=== PATIENT | female | born 1970 | race African-American/Black ===

== ENCOUNTER 2016-08-29 14:44 | Inpatient (IN) | payer OTHER ==
[2016-08-29] MEDS ORDERED: LISINOPRIL 10 MG TABLET PO ONE (15:44)
[2016-08-29] MEDS ORDERED: ACETAMINOPHEN 325 MG TABLET PO ONE (15:44)
--- NOTE | 2016-08-29 15:46 | ER Document Report ---
ED Medical Screen (RME) - General Chief Complaint: Numbness of Arm Stated Complaint: RIGHT EYE PROBLEM Notes: The patient is a 45-year-old female, past medical history diabetes, hypertension , prior episodes of right eye blindness, presents with 4 days of right eye blindness and 2 days of dull right-sided headache with tingling down the right side of her body. She has not taken her 80 mg lisinopril for the past several months. She said that when she has difficulty seeing out of her right eye, and last about a week and then will resolve. She denies head injury, neck pain, chest pain, shortness of breath, fevers, weakness, abdominal pain, nausea, vomiting or ataxia. I have greeted and performed a rapid initial assessment of this patient. A comprehensive ED assessment and evaluation of the patient, analysis of test results and completion of the medical decision making process will be conducted by additional ED providers. TRAVEL OUTSIDE OF THE [place] IN LAST 30 DAYS: No - Related Data Allergies/Adverse Reactions: No Known Allergies Allergy (Verified 08/29/16 14:48) Past Medical History Renal/ Medical History: Denies: Hx Peritoneal Dialysis Physical Exam - Vital signs Vitals: Temp Pulse Resp BP Pulse Ox 98.6 F 91 14 200/104 H 98 08/29/16 14:49 08/29/16 14:49 08/29/16 14:49 08/29/16 14:49 08/29/16 14:49 Course - Vital Signs Vital signs: Temp Pulse Resp BP Pulse Ox 98.6 F 91 14 200/104 H 98 08/29/16 14:49 08/29/16 14:49 08/29/16 14:49 08/29/16 14:49 08/29/16 14:49
[2016-08-29 17:13] LABS: ABSOLUTE LYMPHOCYTES (AUTO) 1.2 10^3/uL (0.5-4.7); ABSOLUTE MONOCYTES (AUTO) 0.2 10^3/uL (0.1-1.4); ABSOLUTE NEUT (AUTO) 2.7 10^3/uL (1.7-8.2); BASOPHILS % (AUTO) 0.6 % (0-2); EOSINOPHILS % (AUTO) 1.1 % (0-6); HEMATOCRIT 37.7 % (36.0-47.0); HGB HCT DIFFERENCE 1.3; MEAN CORPUSCULAR HEMOGLOBIN 29.3 pg (27.0-33.4); MEAN CORPUSCULAR HGB CONC 34.6 g/dL (32.0-36.0); MEAN CORPUSCULAR VOLUME 85 fl (80-97); MONOCYTES % (AUTO) 5.9 % (3-13); RED BLOOD COUNT 4.45 10^6/uL (3.72-5.28); SEGMENTED NEUTROPHILS % (AUTO) 64.4 % (42-78); WHITE BLOOD COUNT 4.2 10^3/uL (4.0-10.5)
[2016-08-29 17:24] LABS: ANION GAP 16 (5-19); BLOOD UREA NITROGEN 11 mg/dL (7-20); CALCIUM 9.1 mg/dL (8.4-10.2); CARBON DIOXIDE 23 mmol/L (22-30); CHLORIDE 108 mmol/L (98-107); CREATINE KINASE 488 U/L (30-135); CREATININE RESULT 0.94 mg/dL (0.52-1.25); GLUCOSE 85 mg/dL (75-110); POTASSIUM 4.3 mmol/L (3.6-5.0); SODIUM 147.1 mmol/L (137-145)
[2016-08-29] MEDS ORDERED: DOCUSATE SODIUM 100 MG CAPSULE PO PRN (17:57)
[2016-08-29] MEDS ORDERED: HYDROCODONE/ACETAMINOPHEN 5-325 MG TABLET PO PRN (17:57)
[2016-08-29] MEDS ORDERED: ACETAMINOPHEN 325 MG TABLET PO PRN (17:57)
[2016-08-29] MEDS ORDERED: TEMAZEPAM 15 MG CAPSULE PO PRN (17:57)
[2016-08-29] MEDS ORDERED: MAGNESIUM HYDROXIDE SUSP 30 ML UDCUP PO PRN (17:57)
[2016-08-29] MEDS ORDERED: NORMAL SALINE 1000 ML 1,000 ML IV ONE (17:58)
--- NOTE | 2016-08-29 17:58 | ER Document Report ---
ED General - General Chief Complaint: Numbness of Arm Stated Complaint: RIGHT EYE PROBLEM TRAVEL OUTSIDE OF THE [place] IN LAST 30 DAYS: No - HPI Patient complains to provider of: loss of vision right eye numbness right-sided body Notes: Patient has a history diabetes hypertension states she's been out of her medication for "quite some time. Patient also states history gastric bypass. Patient states whenever blood pressure gets high patient was does have some loss vision in the right eye. Patient at this time also complains of some numbness and tingling ongoing on the right side of her body. Patient states symptoms started approximately Friday prior to arrival. Patient denies any head trauma denies any fevers chills nausea vomiting diarrhea. Patient states she has had a stroke in the past. Patient does smoke denies drugs denies any alcohol - Related Data Allergies/Adverse Reactions: No Known Allergies Allergy (Verified 08/29/16 14:48) Home Medications: Current Home Medications Ferrous Sulfate [Slow Release Iron] 250 mg PO DAILY 08/29/16 [History] Lisinopril [Prinivil 40 mg Tablet] 80 mg PO DAILY 08/29/16 [History] Mv-Mn/Iron/FA/Ca Carb/Vit K [One-A-Day Women's Tablet] 1 tab PO DAILY 08/29/16 [ History] Past Medical History - Social History Smoking Status: Current Some Day Smoker Family History: Reviewed & Not Pertinent Patient has suicidal ideation: No Patient has homicidal ideation: No - Past Medical History Cardiac Medical History: Reports: Hx Hypertension Endocrine Medical History: Reports: Hx Diabetes Mellitus Type 2 Renal/ Medical History: Denies: Hx Peritoneal Dialysis Past Surgical History: Reports: Hx Abdominal Surgery, Hx Section, Hx Cholecystectomy, Hx Hysterectomy Review of Systems - Review of Systems Constitutional: No symptoms reported EENT: Other - Vision loss Cardiovascular: No symptoms reported Respiratory: No symptoms reported Gastrointestinal: No symptoms reported Genitourinary: No symptoms reported Female Genitourinary: No symptoms reported Musculoskeletal: Other - Right sided numbness Skin: No symptoms reported Hematologic/Lymphatic: No symptoms reported Neurological/Psychological: No symptoms reported Physical Exam - Vital signs Vitals: Temp Pulse Resp BP Pulse Ox 98.6 F 91 14 200/104 H 98 08/29/16 14:49 08/29/16 14:49 08/29/16 14:49 08/29/16 14:49 08/29/16 14:49 Interpretation: Normal - General General appearance: Appears well, Alert - HEENT Head: Normocephalic, Atraumatic Eyes: Normal Conjunctiva: Normal Cornea: Normal Extraocular movements intact: Yes Eyelashes: Normal Pupils: PERRL Notes: Visit acute he was ordered. Never performed. Upon visual testing visual kim patient had no difficulty and the 5 fingers. Patient also did have involuntary response to direct visual threats to the right eye. - Respiratory Respiratory status: No respiratory distress Chest status: Nontender Breath sounds: Normal Chest palpation: Normal - Cardiovascular Rhythm: Regular Heart sounds: Normal auscultation Murmur: No - Abdominal Inspection: Normal Distension: No distension Bowel sounds: Normal Tenderness: Nontender Organomegaly: No organomegaly - Back Back: Normal, Nontender - Extremities General upper extremity: Normal inspection, Nontender, Normal color, Normal ROM , Normal temperature General lower extremity: Normal inspection, Nontender, Normal color, Normal ROM , Normal temperature, Normal weight bearing. No: Cristian's sign - Neurological Neuro grossly intact: Yes Cognition: Normal Orientation: AAOx4 Lana Coma Scale Eye Opening: Spontaneous [place] Coma Scale Verbal: Oriented [place] Coma Scale Motor: Obeys Commands [place] Coma Scale Total: 15 Speech: Normal Motor strength normal: LUE, RUE, LLE, RLE Sensory: Normal - Psychological Associated symptoms: Normal affect, Normal mood - Skin Skin Temperature: Warm Skin Moisture: Dry Skin Color: Normal Course - Re-evaluation Re-evalutation: 08/29/16 22:[address] scan is concerning for left-sided stroke. Patient's blood pressure has improved with oral medication given here in ER in triage. Patient's NIH score 0 did discuss with patient she would not be a candidate for thrombolytic therapy at that she is past the time limit. Patient's case was discussed with the hospitalist. Patient will be admitted for further evaluation - Vital Signs Vital signs: Temp Pulse Resp BP Pulse Ox 98.1 F 88 14 180/108 H 100 08/29/16 20:27 08/29/16 20:00 08/29/16 21:16 08/29/16 21:16 08/29/16 21:16 - Laboratory Result Diagrams: 08/29/16 16:45 08/29/16 16:45 Laboratory results interpreted by me: 0408/29/16 08/29/16 16:45 16:45 17:50 RDW 16.0 H Sodium 147.1 H Chloride 108 H Creatine Kinase 488 H Urine Ketones TRACE H Urine Urobilinogen 2.0 H Critical Care Note - Critical Care Note Total time excluding time spent on procedures (mins): 35 Comments: Multiple evaluations for stroke Discharge - Discharge Clinical Impression: Visual disturbance of one eye HTN (hypertension) Qualifiers: Hypertension type: unspecified secondary hypertension Qualified Code(s): I15.9 - Secondary hypertension, unspecified CVA (cerebral vascular accident) Qualifiers: CVA mechanism: unspecified Qualified Code(s): I63.9 - Cerebral infarction, unspecified Disposition: ADMITTED INPATIENT Admitting Provider: Hospitalist Unit Admitted: [facility] NIH Stroke Scale - NIH Stroke Scale *: 1. NIH scale should be completed with appropriate accompanying assessment tools. *: 2. The NIH should reflect what the patient is capable of doing and should not be coached by the clinician. 1a. Level of Consciousness: 0=Alert;keenly responsive -: 1=Drowsy -: 2=Obtunded -: 3=Coma/unresponsive or reflex to noxious stimuli. 1a. Responses: 0 1b. Orientation Questions: a. What month is it? -: b. How old are you? -: 0=Answers both questions correctly. -: 1=Answers one question correctly or patient is intubated or has orotracheal trauma. -: 2=Answers neither question correctly. 1b. Responses: 0 1c. Response to commands: a. Open and close eyes? -: b. Physical Geographer and release hand? -: Credit is given despite weakness. Demonstration of task is permitted. Substitute command if hands cannot be used. -: 0=Performs both tasks correctly -: 1=Performs one task correctly -: 2=Performs neither task correctly 1c. Responses: 0 2. Gaze: Establish eye contact and instruct patient to "Follow my finger" -: 0=Normal -: 1=Partial gaze palsy. Gaze is abnormal in one or both eyes, but where forced deviation or total gaze paresis is not present. -: 2=Forced deviation or total gaze paresis. 2. Responses: 0 3. Visual Kim: Sees fingers in all four quadrants. -: 0=No visual loss. -: 1=Partial hemianopsia. -: 2=Complete hemianopsia. -: 3=Bilateral hemianopsia (including Cortical blindness) 3. Responses: 0 4. Facial Movement: Instruct patient to: -: a. Show me your teeth -: b. Raise your eyebrows -: c. Close your eyes -: d. Smile -: 0=Normal symmetrical movement -: 1=Minor paralysis (flattened nasolabial fold, asymmetry on smiling). -: 2=Partial paralysis (total or near total paralysis of lower face). -: 3=Complete paralysis of upper and lower face 4. Responses: 0 5. Motor functions (left arm): Alternate sides and extend each arm with palms down (90 degrees if sitting or 45 degrees for supine). -: 0=No drift;limb holds for full 10 seconds. -: 1=Drift; limb holds but drifts down before full 10 seconds, but does not hit bed. -: 2=Some effort against gravity; limb cannot get to or maintain position. -: 3=No effort against gravity; limb falls. -: 4=No movement. -: UN=Amputation, joint fusion, explain in comments. 5. Responses (left arm): 0 5. Motor Functions (right arm): Alternate sides and extend each arm with palms down (90 degrees if sitting or 45 degrees for supine). -: 0=No drift;limb holds for full 10 seconds. -: 1=Drift; limb holds but drifts down before full 10 seconds, but does not hit bed. -: 2=Some effort against gravity; limb cannot get to or maintain position. -: 3=No effort against gravity; limb falls. -: 4=No movement. -: UN=Amputation, joint fusion, explain in comments. 5. Responses (right arm): 0 6. Motor Functions (left leg): With patient lying supine, alternate sides and extend each leg (30 degrees always while supine). -: 0=No drift, leg holds position for full 5 seconds -: 1=Drift; leg falls before full 5 seconds but does not hit bed. -: 2=Some effort against gravity, leg falls to bed but some effort against gravity. -: 3=No effort against gravity, leg falls to bed immediately. -: 4=No movement. -: UN=Amputation, joint fusion; explain in comments. 6. Responses (left leg): 0 6. Motor Functions (right leg): With patient lying supine, alternate sides and extend each leg (30 degrees always while supine). -: 0=No drift, leg holds position for full 5 seconds -: 1=Drift; leg falls before full 5 seconds but does not hit bed. -: 2=Some effort against gravity, leg falls to bed but some effort against gravity. -: 3=No effort against gravity, leg falls to bed immediately. -: 4=No movement. -: UN=Amputation, joint fusion; explain in comments. 6. Responses (right leg): 0 7. Limb Ataxia: With eyes open instruct patient to: -: a. "Touch your finger to your nose". -: b. "Touch your heel to your españa" -: 0=Absent -: 1=Present in one limb. -: 2=Present in two limbs. -: UN=Amputation or joint fusion; explain in comments. 7. Responses: 0 8. Sensory: Test sensation using pinprick or noxious stimuli. Test as many body parts as possible. -: 0=Normal;no sensory loss -: 1=Mile to moderate sensory loss (patient feels pin prick but is less sharp on affected side). -: 2=Severe or total sensory loss. 8. Responses: 0 9. Best Language: Instruct patient to: -: a. "Describe what you see in this picture." -: b. "Name the items in this picture." -: c. "Read these sentences." -: 0=No aphasia, normal -: 1=Mild to moderate aphasia. -: 2=Severe aphasia -: 3=Mute, global aphasia, no usable speech or auditory comprehension. 9. Responses: 0 10. Articulation, Dysarthia: Instruct patient to: -: "Read these words" or "Repeat these words" -: 0=Normal -: 1=Mild to moderate; patient may slur some words but can be understood without difficulty. -: 2=Severe; patients speech so slurred as to be unintelligible in the absence of dysphasia. -: UN=Intubated or other physical barrier, explain in comments. 10. Responses: 0 11. Extinction or inattention: 0=No abnormality -: 1= Visual, tactile, auditory, spatial, or personal inattention or extinction to bilateral simulation in one or the sensory modalities. -: 2=Profound pushpa-inattention or pushpa-inattention to more than one modality; does not recognize own hand. 11. Responses: 0 Total Score: 0
[2016-08-29 18:30] LABS: AMORPHOUS SEDIMENT,URINE TRACE /HPF; APPEARANCE,URINE TURBID; BILIRUBIN,URINE NEGATIVE (NEGATIVE); GLUCOSE, URINE NEGATIVE (NEGATIVE); KETONES,URINE TRACE mg/dL (NEGATIVE); LEUKOCYTE ESTERASE,URINE NEGATIVE (NEGATIVE); NITRITE,URINE NEGATIVE (NEGATIVE); PROTEIN,URINE NEGATIVE (NEGATIVE); URINE SPECIFIC GRAVITY 1.029
[2016-08-29] MEDS ORDERED: LORAZEPAM INJ 2 MG/1 ML VIAL IV PRN (18:34)
[2016-08-29] MEDS ORDERED: NICOTINE 7 MG/24 HR PATCH.TD24 TD PRN (18:36)
[2016-08-29 18:39] LABS: URINE BARBITURATES SCREEN NEGATIVE; URINE METHADONE SCREEN NEGATIVE; URINE OPIATES LOW NEGATIVE; URINE PHENCYCLIDINE SCREEN NEGATIVE
[2016-08-29] MEDS ORDERED: ASPIRIN 325 MG TABLET, ENT COATED PO ONE (19:00)
--- NOTE | 2016-08-29 19:00 | PDOC H&P ---
History of Present Illness Admission Date/PCP: 08/29/16 No PCP History of Present Illness: FREDDIE OCHOA is a 45 year old female with past medical history of previous CVA, diabetes mellitus, hypertension, hyperlipidemia, neuropathy, and anemia status post gastric bypass who presents to the emergency department with right eye problems. Patient reports starting Friday she began having some problems with numbness of the right arm and leg and eye problems. Patient reports she's been out of her blood pressure medicines for the last 6 days. Patient's daughter also reports that she is having some balance issues. CT of the head reveals an acute cerebral CVA. Patient also complains of headache. She is referred to hospital service for evaluation of this. Past Medical History Past Medical History: Hypertension, hyperlipidemia, prior CVA, diabetes mellitus, anemia, neuropathy, alcohol abuse, tobacco abuse Cardiac Medical History: Reports: Hypertension Endocrine Medical History: Reports: Diabetes Mellitus Type 2 Past Surgical History Past Surgical History: Extensive facial plastic surgery as a child, gastric bypass, cholecystectomy, abdominoplasty, , partial hysterectomy Past Surgical History: Reports: Section, Cholecystectomy, Hysterectomy Social History Smoking Status: Current Every Day Smoker Cigarettes Packs Per Day: 0.3 Frequency of Alcohol Use: Heavy - 6-12 beers per day Hx Recreational Drug Use: Yes Drugs: Marijuana Hx Prescription Drug Abuse: No - Advance Directive Resuscitation Status: Full Code Surrogate healthcare decision maker:: Daughter Family History Family History: CAD, DM, Malignancy Parental Family History Reviewed: Yes Children Family History Reviewed: Yes Sibling(s) Family History Reviewed.: Yes Medication/Allergy Allergies/Adverse Reactions: No Known Allergies Allergy (Verified 08/29/16 14:48) Review of Systems Constitutional: PRESENT: headache(s). ABSENT: chills, fever(s), weight gain, weight loss Eyes: PRESENT: visual disturbances Ears: ABSENT: hearing changes Cardiovascular: ABSENT: chest pain, dyspnea on exertion, edema, orthropnea, palpitations Respiratory: ABSENT: cough, hemoptysis Gastrointestinal: ABSENT: abdominal pain, constipation, diarrhea, hematemesis, hematochezia, nausea, vomiting Genitourinary: ABSENT: dysuria, hematuria Musculoskeletal: ABSENT: joint swelling Integumentary: ABSENT: rash, wounds Neurological: PRESENT: abnormal gait, dizziness, focal weakness, paresthesias. ABSENT: abnormal speech, confusion, syncope Psychiatric: ABSENT: anxiety, depression, homidical ideation, suicidal ideation Endocrine: ABSENT: cold intolerance, heat intolerance, polydipsia, polyuria Hematologic/Lymphatic: ABSENT: easy bleeding, easy bruising Physical Exam Vital Signs: Temp Pulse Resp BP Pulse Ox 98.6 F 95 20 154/93 H 98 08/29/16 14:49 08/29/16 16:57 08/29/16 16:57 08/29/16 16:57 08/29/16 16:57 Intake & Output 08/28/16 08/29/16 08/30/16 06:59 06:59 06:59 Weight 76.8 kg General appearance: PRESENT: no acute distress, disheveled, well-developed, well -nourished Head exam: PRESENT: atraumatic, normocephalic Eye exam: PRESENT: conjunctiva pink, EOMI, nystagmus. ABSENT: PERRLA - Right eye unreactive, scleral icterus Ear exam: PRESENT: normal external ear exam Mouth exam: PRESENT: moist, tongue midline Neck exam: ABSENT: JVD, lymphadenopathy, thyromegaly, tracheal deviation Respiratory exam: PRESENT: clear to auscultation kelin, unlabored. ABSENT: crackles, rales, rhonchi, tachypnea, wheezes Cardiovascular exam: PRESENT: RRR, +S1, +S2, systolic murmur. ABSENT: diastolic murmur, gallop, rubs Pulses: PRESENT: normal dorsalis pedis pul Vascular exam: PRESENT: normal capillary refill GI/Abdominal exam: PRESENT: normal bowel sounds, soft. ABSENT: distended, guarding, mass, organolmegaly, rebound, tenderness Rectal exam: PRESENT: deferred Extremities exam: PRESENT: full ROM. ABSENT: calf tenderness, clubbing, pedal edema Neurological exam: PRESENT: alert, awake, oriented to person, oriented to place , oriented to time, oriented to situation, abnormal gait, motor sensory deficit - Numbness right side. ABSENT: CN II-XII grossly intact - Right cranial nerves III deficit Psychiatric exam: PRESENT: appropriate affect, normal mood. ABSENT: homicidal ideation, suicidal ideation Skin exam: PRESENT: dry, intact, warm. ABSENT: cyanosis, rash Results Laboratory Results: 08/29/16 16:45 08/29/16 16:45 08/29/16 08/29/16 08/29/16 16:45 16:45 17:50 WBC 4.2 RBC 4.45 Hgb 13.0 Hct 37.7 MCV 85 MCH 29.3 MCHC 34.6 RDW 16.0 H Plt Count 209 Seg Neutrophils % 64.4 Lymphocytes % 28.0 Monocytes % 5.9 Eosinophils % 1.1 Basophils % 0.6 Absolute Neutrophils 2.7 Absolute Lymphocytes 1.2 Absolute Monocytes 0.2 Absolute Eosinophils 0.0 Absolute Basophils 0.0 Sodium 147.1 H Potassium 4.3 Chloride 108 H Carbon Dioxide 23 Anion Gap 16 BUN 11 Creatinine 0.94 Est GFR ( Amer) > 60 Est GFR (Non-Af Amer) > 60 Glucose 85 Calcium 9.1 Urine Color YELLOW Urine Appearance TURBID Urine pH 5.0 Ur Specific [place] 1.029 Urine Protein NEGATIVE Urine Glucose (UA) NEGATIVE Urine Ketones TRACE H Urine Blood NEGATIVE Urine Nitrite NEGATIVE Ur Leukocyte Esterase NEGATIVE Urine WBC (Auto) 1 Urine RBC (Auto) 3 08/29/16 08/29/16 16:45 16:45 Creatine Kinase 488 H Troponin I < 0.012 Impressions: Chest X-Ray 08/29/16 15:43 IMPRESSION: NO SIGNIFICANT RADIOGRAPHIC FINDING IN THE CHEST. Head CT 08/29/16 15:43 IMPRESSION: FOCAL AREA OF DECREASED ATTENUATION IN THE LEFT CEREBRAL HEMISPHERE. THIS MAY BE VOLUME AVERAGING ARTIFACT SECONDARY TO THE ADJACENT SYLVIAN FISSURE. HOWEVER, GIVEN THE PATIENT'S CLINICAL SYMPTOMS, CANNOT EXCLUDE POSSIBILITY OF A DEVELOPING INFARCT. IF THERE IS CLINICAL SUSPICION, FOLLOW-UP MRI MAY BE INDICATED. Assessment & Plan - Diagnosis (1) CVA (cerebral vascular accident) Qualifiers: CVA mechanism: unspecified Qualified Code(s): I63.9 - Cerebral infarction, unspecified Is this a current diagnosis for this admission?: YesPlan: Patient with apparent left cerebral CVA. Admitted per stroke protocol. Consult PT/OT. Obtain MRI, carotid Doppler, echocardiogram. Discussed at length risk factor modification with patient. Labetalol for systolic blood pressure greater than 180. Aspirin daily. Statin. (2) Hypertensive emergency Is this a current diagnosis for this admission?: YesPlan: Patient was given 80 mg of lisinopril in the emergency department. We will continue to monitor patient and hold on initiating any antihypertensive therapy at this time. Concerned that patient's hypertensive emergency may be the result of alcohol withdrawal. (3) Alcohol abuse Is this a current diagnosis for this admission?: YesPlan: We'll place on thiamine and folic acid. Will place a multivitamin. Monitor for arrhythmia. And check magnesium. (4) Tobacco abuse Is this a current diagnosis for this admission?: YesPlan: Encourage cessation. Offered nicotine patch. (5) Diabetes mellitus Qualifiers: Diabetes mellitus type: type 2 Diabetes mellitus complication status: with unspecified complications Diabetes mellitus local intermodal truck driver insulin use: unspecified local intermodal truck driver insulin use status Qualified Code(s): E11.8 - Type 2 diabetes mellitus with unspecified complications Is this a current diagnosis for this admission?: YesPlan: Patient reports that she just watches what she eats. Check hemoglobin A1c. Place on diabetic diet. (6) Status post gastric bypass for obesity Is this a current diagnosis for this admission?: YesPlan: Will initiate patient on calcium, multivitamin, B-12. - Time Time Spent: 50 to 70 Minutes Medications reviewed and adjusted accordingly: Yes - Inpatient Certification Based on my medical assessment, after consideration of the patient's comorbidities, presenting symptoms, or acuity I expect that the services needed warrant INPATIENT care.: Yes I certify that my determination is in accordance with my understanding of Medicare's requirements for reasonable and necessary INPATIENT services [42 CFR 412.3e].: Yes Medical Necessity: Need For Continuous Telemetry Monitoring, Need for Neurological Checks Post Hospital Care: D/C Field Service Engineer Documentation
--- NOTE | 2016-08-29 19:52 | EKG REPORT ---
SEVERITY:- BORDERLINE ECG - SINUS TACHYCARDIA PROBABLE LEFT ATRIAL ABNORMALITY BORDERLINE PROLONGED QT INTERVAL : Confirmed by: Edgardo Pearson MD 29-Aug-2016 19:51:29
[2016-08-29 20:00] LABS: MAGNESIUM 2.2 mg/dL (1.6-2.3)
[2016-08-29] MEDS ORDERED: THIAMINE HCL 100 MG, FOLIC ACID 1 MG in NORMAL SALINE 50 ML IV SCH (20:00)
[2016-08-29] MEDS: LABETALOL HCL INJ 20 MG/4 ML DISP.SYRIN IV PRN ×2 (20:38→21:36)
[2016-08-29] MEDS ORDERED: ATORVASTATIN CALCIUM 80 MG TABLET PO SCH (22:00)
[2016-08-30 00:14] LABS: CREATINE KINASE MB 0.84 ng/mL (<4.55)
[2016-08-30 00:20] LABS: TROPONIN I < 0.012 ng/mL
[2016-08-30 06:29] LABS: CHOLESTEROL 260.97 mg/dL (0-200); CREATINE KINASE 296 U/L (30-135); TRIGLYCERIDES 39 mg/dL (<150)
[2016-08-30 06:39] LABS: DIRECT LDL 68 mg/dL (<100)
[2016-08-30 06:40] LABS: CREATINE KINASE MB 0.64 ng/mL (<4.55)
[2016-08-30 06:45] LABS: Direct HDL 181 mg/dL (>40); TROPONIN I < 0.012 ng/mL
[2016-08-30] MEDS ORDERED: ENOXAPARIN SODIUM INJ 40 MG/0.4 ML DISP.SYRIN SUBCUT SCH (08:00)
[2016-08-30] MEDS ORDERED: FERROUS SULFATE 325 MG TABLET PO SCH (09:00)
[2016-08-30] MEDS ORDERED: ASCORBIC ACID 500 MG TABLET PO SCH (10:00)
[2016-08-30] MEDS ORDERED: ASPIRIN 325 MG TABLET, ENT COATED PO SCH (10:00)
[2016-08-30] MEDS ORDERED: CYANOCOBALAMIN (VITAMIN B-12) 1,000 MCG TABLET PO SCH (10:00)
[2016-08-30] MEDS ORDERED: MULTIVITAMINS W-IRON TABLET, CHEWABLE PO SCH (10:00)
[2016-08-30] MEDS ORDERED: LOSARTAN POTASSIUM 50 MG TABLET PO SCH (10:00)
[2016-08-30] MEDS: CALCIUM CARBONATE 250 MG/VITAMIN D3 125 UNIT TABLET PO SCH ×2 (10:13→15:23)
[2016-08-30 13:00] LABS: CREATINE KINASE MB 0.66 ng/mL (<4.55)
[2016-08-30 13:01] LABS: TROPONIN I < 0.012 ng/mL
--- NOTE | 2016-08-30 14:46 | PDOC DISCHARGE SUMMARY ---
General - Admit/Disc Date/PCP Admission Date/Primary Care Provider: 08/29/16 17:57 Discharge Date: 08/30/16 - Discharge Diagnosis (1) CVA (cerebral vascular accident) Is this a current diagnosis for this admission?: Yes (2) Hypertensive emergency Is this a current diagnosis for this admission?: Yes (3) Alcohol abuse Is this a current diagnosis for this admission?: Yes (4) Tobacco abuse Is this a current diagnosis for this admission?: Yes (5) Diabetes mellitus Is this a current diagnosis for this admission?: Yes (6) Status post gastric bypass for obesity Is this a current diagnosis for this admission?: Yes - Additional Information Resuscitation Status: Full Code Discharge Diet: Cardiac Discharge Activity: Activity As Tolerated Home Medications: Ferrous Sulfate [Slow Release Iron] 250 mg PO DAILY 08/29/16 Mv-Mn/Iron/FA/Ca Carb/Vit K [One-A-Day Women's Tablet] 1 tab PO DAILY 08/29/16 Amlodipine Besylate [Norvasc 10 mg Tablet] 10 mg PO DAILY #30 tablet 08/30/16 Ascorbic Acid [Vitamin C 500 mg Tablet] 1,000 mg PO BID #120 tablet 08/30/16 Aspirin [Ecotrin 325 mg EC Tablet] 325 mg PO DAILY #90 tabec 08/30/16 Atorvastatin Calcium [Lipitor 20 mg Tablet] 20 mg PO QHS #30 tablet 08/30/16 Calcium Carbonate/Vitamin D3 [Os-Alexei 250 mg with Vitamin D 125 Units] 1 tab PO TID #90 tablet 08/30/16 Cyanocobalamin (Vitamin B-12) [Vitamin B-12 1000 mcg Tablet] 1,000 mcg PO DAILY #90 tablet 08/30/16 Folic Acid [Folvite 1 mg Tablet] 1 mg PO DAILY #30 tablet 08/30/16 Losartan Potassium [Cozaar 50 mg Tablet] 100 mg PO DAILY #60 tablet 08/30/16 Multivitamins W-Iron [Flintstones Chewable Multivit W/Fe Tab] 2 tab PO BID #120 tab.chew 08/30/16 Thiamine HCl [Thiamine 100 mg Tablet] 100 mg PO DAILY #30 tablet 08/30/16 History of Present Illness History of Present Illness: FREDDIE OCHOA is a 45 year old female with past medical history of previous CVA, diabetes mellitus, hypertension, hyperlipidemia, neuropathy, and anemia status post gastric bypass who presents to the emergency department with right eye problems. Patient reports starting Friday she began having some problems with numbness of the right arm and leg and eye problems. Patient reports she's been out of her blood pressure medicines for the last 6 days. Patient's daughter also reports that she is having some balance issues. CT of the head reveals an acute cerebral CVA. Patient also complains of headache. She is referred to hospital service for evaluation of this. Hospital Course Hospital Course: Patient was admitted per stroke protocol. Carotid Doppler was obtained which was negative. MRI was obtained which was remarkably negative. Patient has had a prior CVA and this does make complete identification of her symptoms difficult. Patient does report that her vision is much better today. Patient was also found to be intoxicated in the emergency department with a blood alcohol of 178. Today patient reports she's feeling well from that her vision although slightly blurry is not as bad as yesterday. She has been seen by physical and occupational therapy who have recommended no therapy for her. Patient is having no difficult swallowing. She is having no speech difficulties or issues with weakness. I have advised her to stop smoking and to stop using alcohol under the guidance of her physician. She is stable for discharge home. Patient was found to have a hemoglobin A1c of 4.3. She was also found to have an HDL of 181 and an LDL of 68. I did instruct patient to take statin despite excellent cholesterol. Physical Exam Vital Signs: Temp Pulse Resp BP Pulse Ox 98.6 F 61 18 163/87 H 100 08/30/16 11:21 08/30/16 11:21 08/30/16 11:21 08/30/16 11:21 08/30/16 11:21 Intake & Output 08/29/16 08/30/16 08/31/16 06:59 06:59 06:59 Intake Total 255 500 Output Total 250 Balance 255 250 Weight 79.7 kg Exam: General: Awake alert and oriented x3, no acute respiratory distress HEENT: AT/NC, PERRL, EOMI, oropharynx is moist, pink, no scleral icterus, no conjunctival injection Neck: No JVD, trachea midline Chest: Clear to auscultation bilaterally, no wheezes rhonchi or rales CV: Regular rate and rhythm, normal S1 and S2, no murmur, rub, or gallop Abdomen: Soft, nontender to palpation, nondistended, active bowel sounds; no rebound, rigidity, or guarding Extremities: No cyanosis, clubbing or edema Neuro: Cranial nerves II through XII are grossly intact without focal deficits; awake alert and oriented x3 Psych: Normal mood and affect Results Laboratory Results: 08/30/16 06:00 Triglycerides 39 Cholesterol 260.97 H LDL Cholesterol Direct 68 VLDL Cholesterol 8.0 L HDL Cholesterol 181 08/29/16 08/29/16 08/30/16 23:47 23:47 06:00 Creatine Kinase 323 H CK-MB (CK-2) 0.84 0.64 Troponin I < 0.012 < 0.012 08/30/16 08/30/16 08/30/16 06:00 12:28 12:28 Creatine Kinase 296 H 296 H CK-MB (CK-2) 0.66 Troponin I < 0.012 Impressions: Head MRI 08/29/16 00:00 IMPRESSION: NORMAL MRI OF THE BRAIN WITHOUT INTRAVENOUS GADOLINIUM CONTRAST. Chest X-Ray 08/29/16 15:43 IMPRESSION: NO SIGNIFICANT RADIOGRAPHIC FINDING IN THE CHEST. Head CT 08/29/16 15:43 IMPRESSION: FOCAL AREA OF DECREASED ATTENUATION IN THE LEFT CEREBRAL HEMISPHERE. THIS MAY BE VOLUME AVERAGING ARTIFACT SECONDARY TO THE ADJACENT SYLVIAN FISSURE. HOWEVER, GIVEN THE PATIENT'S CLINICAL SYMPTOMS, CANNOT EXCLUDE POSSIBILITY OF A DEVELOPING INFARCT. IF THERE IS CLINICAL SUSPICION, FOLLOW-UP MRI MAY BE INDICATED. Carotid Doppler Study 08/30/16 00:00 IMPRESSION: NO HEMODYNAMICALLY SIGNIFICANT STENOSIS. Qualifiers PATEINT BEING DISCHARGED WITH ANY OF THE FOLLOWING DIAGNOSIS?: Stroke Stroke Pt being discharged on Anti-thrombolytic therapy?: Yes Stroke Pt being discharged on Anti-coagulation therapy?: No Reason(s) for not prescribing Anti-coagulation therapy:: Not indicated - No A. fib Stroke Pt being discharged on Statins?: Yes Plan Time Spent: Less than 30 Minutes
[2016-08-30] MEDS ORDERED: AMLODIPINE BESYLATE 10 MG TABLET PO ONE (15:15)
[2016-08-30 16:02] VITALS: BP 164/102
[2016-08-30] MEDS ORDERED: LORAZEPAM INJ 2 MG/1 ML VIAL IV ONE (16:02)
== END 2016-08-30 17:11 | disposition home or self-care (01) | DRG 65 ==
LOC: ER 14:44 → EH 17:57 → UNDOADMIN 18:42 → EH 18:42 → 3N 23:30
PROVIDERS: ADMIT Family Medicine; ATTEND Family Medicine
DX: I63.9 Cerebral infarction, unspecified (principal); I16.1 Hypertensive emergency; E11.9 Type 2 diabetes mellitus without complications; E78.5 Hyperlipidemia, unspecified; D64.9 Anemia, unspecified; E11.40 Type 2 diabetes mellitus with diabetic neuropathy, unspecified; F17.210 Nicotine dependence, cigarettes, uncomplicated; F10.129 Alcohol abuse with intoxication, unspecified; F12.90 Cannabis use, unspecified, uncomplicated; Y90.6 Blood alcohol level of 120-199 mg/100 ml; R20.0 Anesthesia of skin; H53.9 Unspecified visual disturbance; Z98.84 Bariatric surgery status; Z90.710 Acquired absence of both cervix and uterus; Z90.49 Acquired absence of other specified parts of digestive tract; Z82.49 Family history of ischemic heart disease and other diseases of the circulatory system; Z80.9 Family history of malignant neoplasm, unspecified; Z83.3 Family history of diabetes mellitus
CPT/HCPCS: 36415; 70450; 70551; 71020; 80048; 80061; 80307; 81001; 82550; 82553; 82962; 83036; 83735; 84484; 85025; 93005; 93010; 93880; 99291; J1650; J2060; J3411; J3490; J7030

== ENCOUNTER → 2017-04-28 | Outpatient (CLI) | payer OTHER ==
--- NOTE | 2017-04-28 17:32 | RADIOLOGY REPORT (SQ) ---
EXAM DESCRIPTION: MRI HEAD WITHOUT COMPLETED DATE/TIME: 04/28/2017 5:10 pm REASON FOR STUDY: I16.0 HYPERTENSIVE URGENCY I16.0 HYPERTENSIVE URGENCY COMPARISON: 08/29/2016. TECHNIQUE: Multiplanar imaging includes non-contrasted T1, T2, FLAIR, and diffusion with ADC map seq uences. Images stored on PACS. LIMITATIONS: None. FINDINGS: ANATOMY: No anomalies. Normal vascular flow voids. Pituitary fossa normal. CSF SPACES: Normal in size and contour. No hemorrhage. CEREBRUM: Sulci and gyri normal in size and contour. Normal white matter signal on FLAIR imaging. No evidence of hemorrhage, mass, or extraaxial fluid collection. POSTERIOR FOSSA: No signal alteration. No hemorrhage. No edema, masses or mass effect. Internal lauryn tory canals, cerebello-pontine angles, mastoids normal. DIFFUSION IMAGING: Negative for acute or sub-acute infarction. ORBITS: No masses. Globes normal. PARANASAL SINUSES: No fluid levels. Mucosa normal. OTHER: No other significant finding. IMPRESSION: NORMAL MRI OF THE BRAIN WITHOUT INTRAVENOUS GADOLINIUM CONTRAST. EVIDENCE OF ACUTE STROKE: NO. TECHNICAL DOCUMENTATION: JOB ID: [id number] [employer]- All Rights Reserved
== END ==
LOC: RAD 16:01
PROVIDERS: ATTEND Internal Medicine
DX: I16.0 Hypertensive urgency (principal)
CPT/HCPCS: 70551

== ENCOUNTER 2017-12-24 15:52 | Inpatient (IN) | payer OTHER ==
[2017-12-24] MEDS ORDERED: FENTANYL CITRATE INJ/PF 100 MCG/2 ML AMPUL IV ONE (16:42)
[2017-12-24] MEDS ORDERED: ONDANSETRON ODT 4 MG TAB (6 TAB/ER DISP) PO PRN (16:42)
[2017-12-24] MEDS ORDERED: DIAZEPAM 2 MG TABLET PO ONE (16:42)
--- NOTE | 2017-12-24 16:43 | ER Document Report ---
ED Medical Screen (RME) - General Chief Complaint: Numbness Stated Complaint: NUMBNESS IN ARM Time Seen by Provider: 12/24/17 16:38 Notes: 47 years old female presents today with right arm weakness numbness tingling sensation, pain over the right side of the neck, each time she moves her neck towards the left the paresthesia increases in intensity and pain increases in intensity over the neck as well as the entire right arm. Feeling numb and tingling sensation. Denies any injury fever chills or other constitutional symptoms. She had an old CVA but the weakness now is more pronounced than before.. Denies any weakness of the right lower leg. TRAVEL OUTSIDE OF THE [place] IN LAST 30 DAYS: No - Related Data Allergies/Adverse Reactions: No Known Allergies Allergy (Verified 12/24/17 15:54) Past Medical History - Social History Chew tobacco use (# tins/day): No Frequency of alcohol use: None Drug Abuse: None - Past Medical History Cardiac Medical History: Reports: Hx Hypertension Endocrine Medical History: Reports: Hx Diabetes Mellitus Type 2 Renal/ Medical History: Denies: Hx Peritoneal Dialysis Past Surgical History: Reports: Hx Abdominal Surgery, Hx Section, Hx Cholecystectomy, Hx Hysterectomy Physical Exam - Vital signs Vitals: Temp Pulse Resp BP Pulse Ox 98.2 F 106 H 18 241/126 H 100 12/24/17 16:06 12/24/17 16:06 12/24/17 16:06 12/24/17 16:06 12/24/17 16:06 Course - Vital Signs Vital signs: Temp Pulse Resp BP Pulse Ox 98.2 F 106 H 18 241/126 H 100 12/24/17 16:06 12/24/17 16:06 12/24/17 16:06 12/24/17 16:06 12/24/17 16:06 Doctor's Discharge - Discharge Referrals: MAU ASHRAF MD [Primary Care Provider] - Follow up as needed
[2017-12-24 16:57] LABS: APPEARANCE,URINE CLEAR; BILIRUBIN,URINE NEGATIVE (NEGATIVE); COLOR,URINE COLORLESS; GLUCOSE, URINE NEGATIVE (NEGATIVE); KETONES,URINE NEGATIVE (NEGATIVE); LEUKOCYTE ESTERASE,URINE NEGATIVE (NEGATIVE); NITRITE,URINE NEGATIVE (NEGATIVE); PROTEIN,URINE NEGATIVE (NEGATIVE); URINE SPECIFIC GRAVITY 1.003; UROBILINOGEN,URINE NEGATIVE mg/dL (<2.0)
[2017-12-24 17:15] LABS: ABSOLUTE LYMPHOCYTES (AUTO) 0.8 10^3/uL (0.5-4.7); ABSOLUTE MONOCYTES (AUTO) 0.2 10^3/uL (0.1-1.4); ABSOLUTE NEUT (AUTO) 2.2 10^3/uL (1.7-8.2); BASOPHILS % (AUTO) 0.6 % (0-2); EOSINOPHILS % (AUTO) 1.1 % (0-6); HEMATOCRIT 38.1 % (36.0-47.0); HEMOGLOBIN 13.3 g/dL (12.0-15.5); LYMPHOCYTES % (AUTO) 24.1 % (13-45); MEAN CORPUSCULAR HGB CONC 34.9 g/dL (32.0-36.0); MEAN CORPUSCULAR VOLUME 86 fl (80-97); MONOCYTES % (AUTO) 7.3 % (3-13); PLATELET COUNT 167 10^3/uL (150-450); RED BLOOD COUNT 4.42 10^6/uL (3.72-5.28); RED CELL DISTRIBUTION WIDTH 17.1 % (11.5-14.0); SEGMENTED NEUTROPHILS % (AUTO) 66.9 % (42-78); TOTAL CELLS COUNTED % (AUTO) 100 %; WHITE BLOOD COUNT 3.3 10^3/uL (4.0-10.5)
[2017-12-24 18:26] LABS: URINE AMPHETAMINES SCREEN NEGATIVE; URINE BARBITURATES SCREEN NEGATIVE; URINE BENZODIAZEPINES SCREEN NEGATIVE; URINE COCAINE SCREEN NEGATIVE; URINE MARIJUANA (THC) SCREEN NEGATIVE; URINE METHADONE SCREEN NEGATIVE; URINE PHENCYCLIDINE SCREEN NEGATIVE
--- NOTE | 2017-12-24 18:28 | RADIOLOGY REPORT (SQ) ---
EXAM DESCRIPTION: CT HEAD WITHOUT COMPLETED DATE/TIME: 12/24/2017 5:57 pm REASON FOR STUDY: right arm weakness COMPARISON: 08/29/2016 TECHNIQUE: Axial images acquired through the brain without intravenous contrast. Images reviewed wi th bone, brain and subdural windows. Additional sagittal and coronal reconstructions were generated. Images stored on PACS. All CT scanners at this facility use dose modulation, iterative reconstruction, and/or weight based d osing when appropriate to reduce radiation dose to as low as reasonably achievable (ALARA). [facility]: Dose Right [facility]: CareDose [facility]: Dose Right [facility]: Teradose 4D [facility]: Pharmapod RADIATION DOSE: mGy. LIMITATIONS: None. FINDINGS: VENTRICLES: Normal size and contour. CEREBRUM: No masses. No hemorrhage. No midline shift. No evidence for acute infarction. Normal gra y/white matter differentiation. No areas of low density in the white matter. CEREBELLUM: No masses. No hemorrhage. No alteration of density. No evidence for acute infarction. EXTRAAXIAL SPACES: No fluid collections. No masses. ORBITS AND GLOBE: No intra- or extraconal masses. Normal contour of globe without masses. CALVARIUM: No fracture. PARANASAL SINUSES: No fluid or mucosal thickening. SOFT TISSUES: No mass or hematoma. OTHER: No other significant finding. IMPRESSION: NORMAL BRAIN CT WITHOUT CONTRAST. EVIDENCE OF ACUTE STROKE: NO. COMMENT: Quality ID # [id number]: Final reports with documentation of one or more dose reduction techniques (e.g., Automated exposure control, adjustment of the mA and/or kV according to patient size, use of iterative reconstruction technique) TECHNICAL DOCUMENTATION: JOB ID: [id number] [employer]- All Rights Reserved Reading location - IP/workstation name: [email or web address]
[2017-12-24] MEDS: NICARDIPINE HCL RTU, ISO-OS 20 MG/200 ML RTUINJ IV PRN ×2 (18:42→22:39)
[2017-12-24 18:58] LABS: ALANINE AMINOTRANSFERASE 45 U/L (9-52); ALBUMIN 4.7 g/dL (3.5-5.0); ALKALINE PHOSPHATASE 92 U/L (38-126); ANION GAP 14 (5-19); ASPARTATE AMINO TRANSFERASE 53 U/L (14-36); BILIRUBIN,DIRECT 0.3 mg/dL (0.0-0.4); BILIRUBIN,TOTAL 0.6 mg/dL (0.2-1.3); BLOOD UREA NITROGEN 7 mg/dL (7-20); CALCIUM 9.4 mg/dL (8.4-10.2); CARBON DIOXIDE 25 mmol/L (22-30); CHLORIDE 102 mmol/L (98-107); GLUCOSE 88 mg/dL (75-110); POTASSIUM 3.9 mmol/L (3.6-5.0); SODIUM 140.8 mmol/L (137-145); TOTAL PROTEIN 8.2 g/dL (6.3-8.2)
[2017-12-24] MEDS ORDERED: LORAZEPAM INJ 2 MG/1 ML VIAL IV ONE (19:28)
[2017-12-24] MEDS ORDERED: NICARDIPINE HCL RTU, ISO-OS 20 MG/200 ML RTUINJ IV PRN (20:01)
--- NOTE | 2017-12-24 20:22 | ER Document Report ---
ED General - General Chief Complaint: Numbness Stated Complaint: NUMBNESS IN ARM Time Seen by Provider: 12/24/17 16:38 TRAVEL OUTSIDE OF THE [place] IN LAST 30 DAYS: No - HPI Patient complains to provider of: Right arm weakness and numbness Notes: Patient here for evaluation of right arm weakness and numbness. Patient states ongoing for the last 24-48 hours. Patient has a history of CVA in the past. Patient also has a history of hypertension. Patient states compliance with her hypertensive medication however in triage patient was noted to have a systolic blood pressure greater than 240. Patient denies any hip pain. Patient states she has residual weakness on the right side from her initial CVA however states this is progressed in the last 24-48 hours. Patient also states pain with movement of her neck to the right. Patient denies any trauma denies any fever chills nausea vomiting diarrhea. Patient resting comfortably upon my evaluation. - Related Data Allergies/Adverse Reactions: No Known Allergies Allergy (Verified 12/24/17 15:54) Past Medical History - Social History Smoking Status: Former Smoker Chew tobacco use (# tins/day): No Frequency of alcohol use: None Drug Abuse: None Family History: Reviewed & Not Pertinent Patient has suicidal ideation: No Patient has homicidal ideation: No - Past Medical History Cardiac Medical History: Reports: Hx Hypertension Endocrine Medical History: Reports: Hx Diabetes Mellitus Type 2 Renal/ Medical History: Denies: Hx Peritoneal Dialysis Past Surgical History: Reports: Hx Abdominal Surgery, Hx Section, Hx Cholecystectomy, Hx Hysterectomy Review of Systems - Review of Systems Constitutional: Weakness EENT: No symptoms reported Cardiovascular: No symptoms reported Respiratory: No symptoms reported Gastrointestinal: No symptoms reported Genitourinary: No symptoms reported Female Genitourinary: No symptoms reported Musculoskeletal: No symptoms reported Skin: No symptoms reported Hematologic/Lymphatic: No symptoms reported Neurological/Psychological: Numbness -: Yes All other systems reviewed and negative Physical Exam - Vital signs Vitals: Temp Pulse Resp BP Pulse Ox 98.2 F 106 H 18 241/126 H 100 12/24/17 16:06 12/24/17 16:06 12/24/17 16:06 12/24/17 16:06 12/24/17 16:06 Interpretation: Hypertensive - General General appearance: Appears well, Alert - HEENT Head: Normocephalic, Atraumatic Eyes: Normal Pupils: PERRL - Respiratory Respiratory status: No respiratory distress Chest status: Nontender Breath sounds: Normal Chest palpation: Normal - Cardiovascular Rhythm: Regular Heart sounds: Normal auscultation Murmur: No - Abdominal Inspection: Normal Distension: No distension Bowel sounds: Normal Tenderness: Nontender Organomegaly: No organomegaly - Back Back: Normal, Nontender - Extremities General upper extremity: Other - Patient with 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 Patient is able to reach up and grasp my fingers. General lower extremity: Normal inspection, Nontender, Normal color, Normal ROM , Normal temperature, Normal weight bearing. No: Cristian's sign - Neurological Neuro grossly intact: Yes Cognition: Normal Orientation: AAOx4 Lana Coma Scale Eye Opening: Spontaneous [place] Coma Scale Verbal: Oriented Lana Coma Scale Motor: Obeys Commands [place] Coma Scale Total: 15 Speech: Normal Motor strength normal: LUE, LLE, RLE. No: RUE Sensory: Normal - Psychological Associated symptoms: Normal affect, Normal mood - Skin Skin Temperature: Warm Skin Moisture: Dry Skin Color: Normal Course - Re-evaluation Re-evalutation: 12/24/17 23:58 Due to patient's elevated blood pressure and new symptoms concerning for underlying neurological condition hypertensive emergency. Patient had a head CT performed and was otherwise negative. Also underwent MRI that was negative for acute stroke. Because of her blood pressure patient was started on Cardene drip which did lower her blood pressure. Did discuss with her the patient's primary care physician. Will admit patient to ICU for hypertensive emergency. Possible etiologies could be a cervical radiculopathy however at this time I do believe that ruling out stroke and hypertensive emergency more important - Vital Signs Vital signs: Temp Pulse Resp BP Pulse Ox 98.2 F 104 H 27 H 164/108 H 96 12/24/17 21:55 12/24/17 21:55 12/24/17 22:01 12/24/17 22:00 12/24/17 22:01 - Laboratory Result Diagrams: 12/24/17 16:59 12/24/17 18:06 Laboratory results interpreted by me: 12/24/17 12/24/17 12/24/17 16:59 16:59 16:59 WBC 3.3 L RDW 17.1 H AST Creatine Kinase NT-Pro-B Natriuret Pep 272 H TSH 6.39 H Free T4 0.75 L 12/24/17 12/24/17 16:59 18:06 WBC RDW AST 53 H Creatine Kinase 158 H NT-Pro-B Natriuret Pep TSH Free T4 Discharge - Discharge Clinical Impression: Hypertensive emergency, History of CVA (cerebrovascular accident), Right upper extremity numbness, Right arm weakness Condition: Good Disposition: ADMITTED INPATIENT [facility] Unit Admitted: ICU
[2017-12-24 20:36] LABS: INTERNATIONAL RATION (INR) 0.81; PROTHROMBIN TIME 11.6 SEC (11.4-15.4)
[2017-12-24 20:37] LABS: PARTIAL THROMBOPLASTIN TIME 25.4 SEC (23.5-35.8)
--- NOTE | 2017-12-24 20:39 | RADIOLOGY REPORT (SQ) ---
EXAM DESCRIPTION: MRI HEAD WITHOUT COMPLETED DATE/TIME: 12/24/2017 8:15 pm REASON FOR STUDY: right arm weakness COMPARISON: CT 12/24/2017 MR 08/29/2016 TECHNIQUE: Multiplanar imaging includes non-contrasted T1, T2, FLAIR, and diffusion with ADC map seq uences. Images stored on PACS. LIMITATIONS: None. FINDINGS: ANATOMY: No anomalies. Normal vascular flow voids. Pituitary fossa normal. CSF SPACES: Normal in size and contour. No hemorrhage. CEREBRUM: Sulci and gyri normal in size and contour. Normal white matter signal on FLAIR imaging. No evidence of hemorrhage, mass, or extraaxial fluid collection. POSTERIOR FOSSA: No signal alteration. No hemorrhage. No edema, masses or mass effect. Internal lauryn tory canals, cerebello-pontine angles, mastoids normal. DIFFUSION IMAGING: Negative for acute or sub-acute infarction. ORBITS: No masses. Globes normal. PARANASAL SINUSES: No fluid levels. Mucosa normal. OTHER: No other significant finding. IMPRESSION: NORMAL MRI OF THE BRAIN WITHOUT INTRAVENOUS GADOLINIUM CONTRAST. EVIDENCE OF ACUTE STROKE: NO. TECHNICAL DOCUMENTATION: JOB ID: [id number] [employer]- All Rights Reserved Reading location - IP/workstation name: [email or web address]
[2017-12-24 20:45] LABS: LIPASE 66.2 U/L (23-300); PHOSPHORUS 3.3 mg/dL (2.5-4.5)
[2017-12-24 21:13] LABS: CREATINE KINASE MB 0.78 ng/mL (<4.55); FREE T4 (FREE THYROXINE) 0.75 ng/dL (0.78-2.19)
[2017-12-24 21:15] LABS: TROPONIN I < 0.012 ng/mL
[2017-12-24 21:27] LABS: THYROID STIMULATING HORMONE 6.39 uIU/mL (0.47-4.68)
[2017-12-24] MEDS ORDERED: ENOXAPARIN SODIUM INJ 40 MG/0.4 ML DISP.SYRIN SUBCUT ONE (21:30)
--- NOTE | 2017-12-24 21:30 | EKG REPORT ---
SEVERITY:- ABNORMAL ECG - SINUS RHYTHM PROBABLE LEFT ATRIAL ABNORMALITY PROBABLE LEFT VENTRICULAR HYPERTROPHY BORDERLINE PROLONGED QT INTERVAL : Confirmed by: Sapna Ruiz MD 24-Dec-2017 21:29:53
[2017-12-24 23:38] LABS: APPEARANCE,URINE CLEAR; BILIRUBIN,URINE NEGATIVE (NEGATIVE); COLOR,URINE STRAW; GLUCOSE, URINE NEGATIVE (NEGATIVE); KETONES,URINE TRACE mg/dL (NEGATIVE); LEUKOCYTE ESTERASE,URINE NEGATIVE (NEGATIVE); NITRITE,URINE NEGATIVE (NEGATIVE); PROTEIN,URINE NEGATIVE (NEGATIVE); URINE SPECIFIC GRAVITY 1.006; UROBILINOGEN,URINE NEGATIVE mg/dL (<2.0)
[2017-12-25] MEDS: ACETAMINOPHEN 325 MG TABLET PO PRN ×3 (00:37→15:37)
[2017-12-25 00:57] LABS: CREATINE KINASE MB 0.68 ng/mL (<4.55)
[2017-12-25 01:01] LABS: TROPONIN I < 0.012 ng/mL
[2017-12-25 06:49] LABS: ABSOLUTE LYMPHOCYTES (AUTO) 0.8 10^3/uL (0.5-4.7); ABSOLUTE MONOCYTES (AUTO) 0.3 10^3/uL (0.1-1.4); ABSOLUTE NEUT (AUTO) 1.2 10^3/uL (1.7-8.2); BASOPHILS % (AUTO) 0.8 % (0-2); EOSINOPHILS % (AUTO) 1.7 % (0-6); HEMOGLOBIN 12.2 g/dL (12.0-15.5); LYMPHOCYTES % (AUTO) 33.5 % (13-45); MEAN CORPUSCULAR HEMOGLOBIN 30.5 pg (27.0-33.4); MEAN CORPUSCULAR HGB CONC 35.8 g/dL (32.0-36.0); MEAN CORPUSCULAR VOLUME 85 fl (80-97); MONOCYTES % (AUTO) 11.4 % (3-13); PLATELET COUNT 143 10^3/uL (150-450); RED CELL DISTRIBUTION WIDTH 16.9 % (11.5-14.0); SEGMENTED NEUTROPHILS % (AUTO) 52.6 % (42-78); TOTAL CELLS COUNTED % (AUTO) 100 %; WHITE BLOOD COUNT 2.3 10^3/uL (4.0-10.5)
[2017-12-25 07:08] LABS: ALANINE AMINOTRANSFERASE 37 U/L (9-52); ALBUMIN 4.1 g/dL (3.5-5.0); ALKALINE PHOSPHATASE 76 U/L (38-126); ANION GAP 12 (5-19); ASPARTATE AMINO TRANSFERASE 43 U/L (14-36); BILIRUBIN,DIRECT 0.3 mg/dL (0.0-0.4); BILIRUBIN,TOTAL 0.9 mg/dL (0.2-1.3); BLOOD UREA NITROGEN 6 mg/dL (7-20); CALCIUM 9.1 mg/dL (8.4-10.2); CARBON DIOXIDE 26 mmol/L (22-30); CHLORIDE 100 mmol/L (98-107); CHOLESTEROL 278.76 mg/dL (0-200); CREATINE KINASE 106 U/L (30-135); GLUCOSE 79 mg/dL (75-110); POTASSIUM 3.4 mmol/L (3.6-5.0); SODIUM 137.8 mmol/L (137-145); TOTAL PROTEIN 6.9 g/dL (6.3-8.2); TRIGLYCERIDES 76 mg/dL (<150)
[2017-12-25 07:18] LABS: CREATINE KINASE MB 0.55 ng/mL (<4.55)
[2017-12-25 07:21] LABS: DIRECT LDL 38 mg/dL (<100)
[2017-12-25 07:22] LABS: TROPONIN I < 0.012 ng/mL
[2017-12-25] MEDS: CALCIUM CARBONATE 250 MG/VITAMIN D3 125 UNIT TABLET PO SCH ×3 (09:51→18:41)
[2017-12-25] MEDS: ENOXAPARIN SODIUM INJ 40 MG/0.4 ML DISP.SYRIN SUBCUT SCH (09:51)
[2017-12-25] MEDS: LOSARTAN POTASSIUM 50 MG TABLET PO SCH (09:52)
[2017-12-25] MEDS: ASCORBIC ACID 500 MG TABLET PO SCH ×2 (09:52→18:41)
[2017-12-25] MEDS: ASPIRIN 325 MG TABLET, ENT COATED PO SCH (09:52)
[2017-12-25] MEDS: THIAMINE HCL 100 MG TABLET PO SCH (09:52)
[2017-12-25] MEDS: CYANOCOBALAMIN (VITAMIN B-12) 1,000 MCG TABLET PO SCH (09:52)
[2017-12-25] MEDS: ATORVASTATIN CALCIUM 20 MG TABLET PO SCH ×2 (09:52→21:16)
[2017-12-25] MEDS: FOLIC ACID 1 MG TABLET PO SCH (09:52)
[2017-12-25] MEDS: AMLODIPINE BESYLATE 10 MG TABLET PO SCH (09:52)
[2017-12-25] MEDS: MULTIVITAMIN TABLET PO SCH (09:52)
[2017-12-25] MEDS ORDERED: FERROUS SULFATE 250 MG PO SCH (10:00)
--- NOTE | 2017-12-25 20:22 | PDOC H&P ---
History of Present Illness Admission Date/PCP: 12/24/17 20:20 MAU ASHRAF MD History of Present Illness: FREDDIE OCHOA is a 47 year old female, She came to the emergency room for evaluation of numbness of the right side of the body specifically right upper extremity associated with severely elevated blood pressure in the emergency hypertensive range. The systolic blood pressure recorded was over 200, MRI of the head was obtained there was no evidence of acute pathology, she was admitted to the hospital for the management of hypertensive emergency. She was started on Cardene infusion. Patient is very noncompliant she has poorly controlled blood pressure she has not had any follow-up evaluation in the office this year. She had a history of alcohol abuse, and tobacco abuse. She also have deformity of the right shoulder. On further questioning it seems that her symptoms is more consistent with cervical radiculopathy. Past Medical History Cardiac Medical History: Reports: Hypertension Psychiatric Medical History: Reports: Alcohol Dependency Past Surgical History Past Surgical History: Reports: Section, Cholecystectomy, Hysterectomy Social History Smoking Status: Former Smoker Frequency of Alcohol Use: Rare Hx Recreational Drug Use: No Drugs: None Hx Prescription Drug Abuse: No - Advance Directive Resuscitation Status: Full Code Family History Family History: Reviewed & Not Pertinent Parental Family History Reviewed: Yes Children Family History Reviewed: Yes Sibling(s) Family History Reviewed.: Yes Medication/Allergy Home Medications: Amlodipine Besylate [Norvasc 10 mg Tablet] 10 mg PO DAILY 12/24/17 Ascorbic Acid [Vitamin C 500 mg Tablet] 500 mg PO BID 12/24/17 Aspirin [Ecotrin 325 mg EC Tablet] 325 mg PO DAILY 12/24/17 Atorvastatin Calcium [Lipitor 20 mg Tablet] 20 mg PO QHS 12/24/17 Calcium Carbonate/Vitamin D3 [Os-Alexei 250 mg with Vitamin D 125 Units] 1 tab PO TID 12/24/17 Cyanocobalamin (Vitamin B-12) [Vitamin B-12 1000 mcg Tablet] 1,000 mcg PO DAILY 12/24/17 Ferrous Sulfate [Slow Release Iron] 250 mg PO DAILY 12/24/17 Folic Acid [Folvite 1 mg Tablet] 1 mg PO DAILY 12/24/17 Losartan Potassium [Cozaar 100 mg Tablet] 100 mg PO DAILY 12/24/17 Multivitamin [Tab-A-Adeline (Multiple Vitamin) Tablet] 1 tab PO DAILY 12/24/17 Thiamine HCl [Thiamine 100 mg Tablet] 100 mg PO DAILY 12/24/17 Allergies/Adverse Reactions: No Known Allergies Allergy (Verified 12/24/17 15:54) Review of Systems Constitutional: ABSENT: chills, fever(s), headache(s), weight gain, weight loss Eyes: ABSENT: visual disturbances Ears: ABSENT: hearing changes Cardiovascular: ABSENT: chest pain, dyspnea on exertion, edema, orthropnea, palpitations Respiratory: ABSENT: cough, hemoptysis Gastrointestinal: ABSENT: abdominal pain, constipation, diarrhea, hematemesis, hematochezia, nausea, vomiting Genitourinary: ABSENT: dysuria, hematuria Musculoskeletal: ABSENT: joint swelling Integumentary: ABSENT: rash, wounds Neurological: PRESENT: numbness, paresthesias Psychiatric: ABSENT: anxiety, depression, homidical ideation, suicidal ideation Endocrine: ABSENT: cold intolerance, heat intolerance, menstrual abnormalities, polydipsia, polyuria Hematologic/Lymphatic: ABSENT: easy bleeding, easy bruising, lymphadenopathy Physical Exam Vital Signs: Temp Pulse Resp BP Pulse Ox 97.9 F 65 16 164/102 H 100 12/25/17 15:53 12/25/17 18:00 12/25/17 18:00 12/25/17 18:00 12/25/17 18:00 Intake & Output 12/24/17 12/25/17 12/26/17 06:59 06:59 06:59 Intake Total 228 894 Output Total 700 1150 Balance -472 -256 Weight 83.9 kg Head exam: PRESENT: atraumatic, normocephalic Eye exam: PRESENT: conjunctiva pink, EOMI, PERRLA Ear exam: PRESENT: normal external ear exam Mouth exam: PRESENT: moist, tongue midline Neck exam: PRESENT: full ROM Respiratory exam: PRESENT: clear to auscultation kelin Cardiovascular exam: PRESENT: RRR, +S1, +S2 Pulses: PRESENT: normal dorsalis pedis pul, +2 pedal pulses bilateral Vascular exam: PRESENT: normal capillary refill GI/Abdominal exam: PRESENT: normal bowel sounds, soft Rectal exam: PRESENT: deferred Musculoskeletal exam: PRESENT: deformity - There is deformity of the right shoulder Neurological exam: PRESENT: alert, awake, oriented to person, oriented to place , oriented to time, oriented to situation, CN II-XII grossly intact. ABSENT: motor sensory deficit Psychiatric exam: PRESENT: appropriate affect, normal mood Skin exam: PRESENT: dry, intact, warm Results Laboratory Results: 12/25/17 06:35 12/25/17 06:35 12/24/17 12/24/17 12/25/17 22:08 23:00 06:35 WBC 2.3 L RBC 4.00 Hgb 12.2 Hct 34.0 L MCV 85 MCH 30.5 MCHC 35.8 RDW 16.9 H Plt Count 143 L Seg Neutrophils % 52.6 Lymphocytes % 33.5 Monocytes % 11.4 Eosinophils % 1.7 Basophils % 0.8 Absolute Neutrophils 1.2 L Absolute Lymphocytes 0.8 Absolute Monocytes 0.3 Absolute Eosinophils 0.0 Absolute Basophils 0.0 Sodium Potassium Chloride Carbon Dioxide Anion Gap BUN Creatinine Est GFR ( Amer) Est GFR (Non-Af Amer) Glucose Calcium Total Bilirubin AST ALT Alkaline Phosphatase Ammonia < 8.7 L Total Protein Albumin Triglycerides Cholesterol LDL Cholesterol Direct VLDL Cholesterol HDL Cholesterol Urine Color STRAW Urine Appearance CLEAR Urine pH 7.0 Ur Specific [place] 1.006 Urine Protein NEGATIVE Urine Glucose (UA) NEGATIVE Urine Ketones TRACE H Urine Blood NEGATIVE Urine Nitrite NEGATIVE Ur Leukocyte Esterase NEGATIVE Urine WBC (Auto) 0 Urine RBC (Auto) 0 12/25/17 06:35 WBC RBC Hgb Hct MCV MCH MCHC RDW Plt Count Seg Neutrophils % Lymphocytes % Monocytes % Eosinophils % Basophils % Absolute Neutrophils Absolute Lymphocytes Absolute Monocytes Absolute Eosinophils Absolute Basophils Sodium 137.8 Potassium 3.4 L Chloride 100 Carbon Dioxide 26 Anion Gap 12 BUN 6 L Creatinine 0.73 Est GFR ( Amer) > 60 Est GFR (Non-Af Amer) > 60 Glucose 79 Calcium 9.1 Total Bilirubin 0.9 AST 43 H ALT 37 Alkaline Phosphatase 76 Ammonia Total Protein 6.9 Albumin 4.1 Triglycerides 76 Cholesterol 278.76 H LDL Cholesterol Direct 38 VLDL Cholesterol 15.0 HDL Cholesterol 98 Urine Color Urine Appearance Urine pH Ur Specific [place] Urine Protein Urine Glucose (UA) Urine Ketones Urine Blood Urine Nitrite Ur Leukocyte Esterase Urine WBC (Auto) Urine RBC (Auto) 12/25/17 12/25/17 12/25/17 00:20 00:20 06:35 Creatine Kinase 112 106 CK-MB (CK-2) 0.68 Troponin I < 0.012 12/25/17 06:35 Creatine Kinase CK-MB (CK-2) 0.55 Troponin I < 0.012 Impressions: Head MRI 12/24/17 17:43 IMPRESSION: NORMAL MRI OF THE BRAIN WITHOUT INTRAVENOUS GADOLINIUM CONTRAST. EVIDENCE OF ACUTE STROKE: NO. Head CT 12/24/17 17:44 IMPRESSION: NORMAL BRAIN CT WITHOUT CONTRAST. EVIDENCE OF ACUTE STROKE: NO. Assessment & Plan - Diagnosis (1) Hypertensive emergency Is this a current diagnosis for this admission?: Yes Plan: Patient is admitted for the management of hypertensive emergency associated with numbness and tingling of the left upper extremities, she will continue nicardipine infusion
--- NOTE | 2017-12-25 20:27 | PDOC PROGRESS REPORT ---
Subjective Progress Note for:: 12/25/17 Subjective:: Patient was admitted yesterday for the management of hypertensive emergency associated with numbness of the right upper extremity on further questioning as syndrome is more consistent with cervical radiculopathy. There is apparent deformity of the right shoulder, patient denies any recent trauma history of previous trauma. Reason For Visit: HYPERTENSIVE EMERGENCY Physical Exam Vital Signs: Temp Pulse Resp BP Pulse Ox 97.2 F 65 16 164/102 H 100 12/25/17 20:00 12/25/17 18:00 12/25/17 18:00 12/25/17 18:00 12/25/17 18:00 Intake & Output 12/24/17 12/25/17 12/26/17 06:59 06:59 06:59 Intake Total 228 894 Output Total 700 1550 Balance -472 -656 Weight 83.9 kg General appearance: PRESENT: no acute distress Eye exam: PRESENT: PERRLA Respiratory exam: PRESENT: clear to auscultation kelin Cardiovascular exam: PRESENT: +S1, +S2 GI/Abdominal exam: PRESENT: soft Musculoskeletal exam: PRESENT: deformity - There is deformity of the right shoulder Neurological exam: PRESENT: alert, CN II-XII grossly intact Results Laboratory Results: 12/25/17 06:35 12/25/17 06:35 12/24/17 12/24/17 12/25/17 22:08 23:00 06:35 WBC 2.3 L RBC 4.00 Hgb 12.2 Hct 34.0 L MCV 85 MCH 30.5 MCHC 35.8 RDW 16.9 H Plt Count 143 L Seg Neutrophils % 52.6 Lymphocytes % 33.5 Monocytes % 11.4 Eosinophils % 1.7 Basophils % 0.8 Absolute Neutrophils 1.2 L Absolute Lymphocytes 0.8 Absolute Monocytes 0.3 Absolute Eosinophils 0.0 Absolute Basophils 0.0 Sodium Potassium Chloride Carbon Dioxide Anion Gap BUN Creatinine Est GFR ( Amer) Est GFR (Non-Af Amer) Glucose Calcium Total Bilirubin AST ALT Alkaline Phosphatase Ammonia < 8.7 L Total Protein Albumin Triglycerides Cholesterol LDL Cholesterol Direct VLDL Cholesterol HDL Cholesterol Urine Color STRAW Urine Appearance CLEAR Urine pH 7.0 Ur Specific [place] 1.006 Urine Protein NEGATIVE Urine Glucose (UA) NEGATIVE Urine Ketones TRACE H Urine Blood NEGATIVE Urine Nitrite NEGATIVE Ur Leukocyte Esterase NEGATIVE Urine WBC (Auto) 0 Urine RBC (Auto) 0 12/25/17 06:35 WBC RBC Hgb Hct MCV MCH MCHC RDW Plt Count Seg Neutrophils % Lymphocytes % Monocytes % Eosinophils % Basophils % Absolute Neutrophils Absolute Lymphocytes Absolute Monocytes Absolute Eosinophils Absolute Basophils Sodium 137.8 Potassium 3.4 L Chloride 100 Carbon Dioxide 26 Anion Gap 12 BUN 6 L Creatinine 0.73 Est GFR ( Amer) > 60 Est GFR (Non-Af Amer) > 60 Glucose 79 Calcium 9.1 Total Bilirubin 0.9 AST 43 H ALT 37 Alkaline Phosphatase 76 Ammonia Total Protein 6.9 Albumin 4.1 Triglycerides 76 Cholesterol 278.76 H LDL Cholesterol Direct 38 VLDL Cholesterol 15.0 HDL Cholesterol 98 Urine Color Urine Appearance Urine pH Ur Specific [place] Urine Protein Urine Glucose (UA) Urine Ketones Urine Blood Urine Nitrite Ur Leukocyte Esterase Urine WBC (Auto) Urine RBC (Auto) 12/25/17 12/25/17 12/25/17 00:20 00:20 06:35 Creatine Kinase 112 106 CK-MB (CK-2) 0.68 Troponin I < 0.012 12/25/17 06:35 Creatine Kinase CK-MB (CK-2) 0.55 Troponin I < 0.012 Impressions: Head MRI 12/24/17 17:43 IMPRESSION: NORMAL MRI OF THE BRAIN WITHOUT INTRAVENOUS GADOLINIUM CONTRAST. EVIDENCE OF ACUTE STROKE: NO. Head CT 12/24/17 17:44 IMPRESSION: NORMAL BRAIN CT WITHOUT CONTRAST. EVIDENCE OF ACUTE STROKE: NO. Assessment & Plan - Diagnosis (1) Hypertensive emergency Is this a current diagnosis for this admission?: Yes Plan: Discontinue Cardizem infusion, start p.o. medication, downgraded to medical floor (2) Cervical radiculopathy Is this a current diagnosis for this admission?: Yes Plan: MRI cervical spine requested (3) Deformity of right shoulder joint Is this a current diagnosis for this admission?: Yes Plan: MRI right shoulder requested
[2017-12-25] MEDS: HYDRALAZINE HCL 25 MG TABLET PO SCH (21:17)
[2017-12-25] MEDS ORDERED: LORAZEPAM INJ 2 MG/1 ML VIAL ONE (21:42)
[2017-12-25] MEDS ORDERED: LORAZEPAM 0.5 MG TABLET PO ONE (21:45)
--- NOTE | 2017-12-25 23:00 | RADIOLOGY REPORT (SQ) ---
EXAM DESCRIPTION: MR right shoulder WITHOUT IV CONTRAST COMPLETED DATE/TME: 12/25/2017 00:00 CLINICAL HISTORY: 47 years Female, deformity of the right shoulder COMPARISON: None. TECHNIQUE/LIMITATION: Quality: Suboptimal. FINDINGS: Os acromiale, normal alignment, normal bone marrow, no significant effusion, partial-thickness bursal surface tear of the supraspinatus tendon, normal glenoid labrum, normal long biceps tendon. Unremarkable soft tissues and neural vasculature. IMPRESSION: Partial-thickness bursal surface tear of the right supraspinatus tendon. Limitation.
--- NOTE | 2017-12-25 23:24 | RADIOLOGY REPORT (SQ) ---
EXAM DESCRIPTION: MRI cervical spine without contrast CLINICAL HISTORY: cervical radiculopathy COMPARISON: None Available. TECHNIQUE: Multiplanar images of the cervical spine were submitted without the administration of contrast FINDINGS: There is reversal of the normal lordosis. Narrowing of the disc interspaces at C5-6 and C6-7. Minimal retrolisthesis of C5 on C6. There is chronic appearing wedging at C5-C6 and C7 with marginal osteophytosis and reactive endplate change. There is low signal in the vertebral body at C7 on T1 with increased signal on the inversion recovery and T2-weighted images. This can be seen with early Modic endplate change, but the possibility of mild marrow edema or compression is not excluded. Signal within the cervical cord appears within normal limits. C2-3: Unremarkable. C3-4: No evidence of HNP or significant central canal stenosis. C4-5: Mild generalized bulging of disc greatest on the left with mild narrowing of the central canal and moderate narrowing of the canal on the left. C5-6: Posterior osteophytosis with moderate narrowing of the central canal and severe bilateral neural foraminal stenosis. C6-7: Generalized bulging of the disc and posterior lateral osteophytosis. There is mild to moderate narrowing of the canal and severe neural foraminal stenosis. C7-T1: Moderate bilateral neural foraminal stenosis without significant central canal stenosis. Incidental note is made moderate disc bulging at T2-T3 with a central and left-sided disc protrusion suggested. No axial imaging was provided through this region. There is severe bilateral neural foraminal stenosis. Moderate neural foraminal narrowing also present at T1-T2 on the right and bilaterally at T3-T4. IMPRESSION: Multilevel degenerative change in the cervical and thoracic spine as described Reactive endplate changes and chronic wedging at C5-C6 and C7 Edema in the C7 vertebral body which may be related to reactive endplate change the possibility of mild marrow edema or mild compression not excluded Limited axial imaging with moderate central canal and severe bilateral neural foraminal stenosis at C5-6; moderate narrowing at C6-7 with severe bilateral neural foraminal stenosis Mild left-sided disc bulging at C4-5 with moderate narrowing of the left aspect of the thecal sac
--- NOTE | 2017-12-25 23:33 | RADIOLOGY REPORT (SQ) ---
EXAM DESCRIPTION: XR SHOULDER 1 VIEW COMPLETED DATE/TME: 12/25/2017 00:00 CLINICAL HISTORY: 47 years, Female, rt shoulder deformity COMPARISON: None. FINDINGS: Single view of the right shoulder. No acute fracture or dislocation. Normal osseous mineralization. No acute abnormality of the right hemithorax. IMPRESSION: No acute fracture dislocation identified. 2010 [employer]- All Rights Reserved
[2017-12-26 04:23] LABS: ABSOLUTE LYMPHOCYTES (AUTO) 0.8 10^3/uL (0.5-4.7); ABSOLUTE MONOCYTES (AUTO) 0.3 10^3/uL (0.1-1.4); ABSOLUTE NEUT (AUTO) 1.3 10^3/uL (1.7-8.2); BASOPHILS % (AUTO) 0.5 % (0-2); EOSINOPHILS % (AUTO) 1.7 % (0-6); HEMATOCRIT 35.6 % (36.0-47.0); HEMOGLOBIN 12.6 g/dL (12.0-15.5); LYMPHOCYTES % (AUTO) 32.8 % (13-45); MEAN CORPUSCULAR HEMOGLOBIN 29.9 pg (27.0-33.4); MEAN CORPUSCULAR HGB CONC 35.4 g/dL (32.0-36.0); MEAN CORPUSCULAR VOLUME 85 fl (80-97); MONOCYTES % (AUTO) 11.8 % (3-13); PLATELET COUNT 134 10^3/uL (150-450); RED BLOOD COUNT 4.21 10^6/uL (3.72-5.28); RED CELL DISTRIBUTION WIDTH 16.8 % (11.5-14.0); SEGMENTED NEUTROPHILS % (AUTO) 53.2 % (42-78); TOTAL CELLS COUNTED % (AUTO) 100 %; WHITE BLOOD COUNT 2.5 10^3/uL (4.0-10.5)
[2017-12-26 04:27] LABS: ALBUMIN 3.7 g/dL (3.5-5.0); ANION GAP 10 (5-19); BLOOD UREA NITROGEN 9 mg/dL (7-20); CALCIUM 9.2 mg/dL (8.4-10.2); CARBON DIOXIDE 26 mmol/L (22-30); CHLORIDE 104 mmol/L (98-107); GLUCOSE 78 mg/dL (75-110); POTASSIUM 3.3 mmol/L (3.6-5.0); SODIUM 139.6 mmol/L (137-145); TOTAL PROTEIN 6.5 g/dL (6.3-8.2)
[2017-12-26 04:28] LABS: ALANINE AMINOTRANSFERASE 33 U/L (9-52); ALKALINE PHOSPHATASE 66 U/L (38-126); ASPARTATE AMINO TRANSFERASE 38 U/L (14-36); BILIRUBIN,DIRECT 0.2 mg/dL (0.0-0.4); BILIRUBIN,TOTAL 0.7 mg/dL (0.2-1.3)
[2017-12-26] MEDS: HYDRALAZINE HCL 25 MG TABLET PO SCH ×3 (06:18→14:29)
[2017-12-26] MEDS: POTASSIUM CHLORIDE 10 MEQ CAPSULE.ER PO SCH ×2 (06:37→09:40)
[2017-12-26] MEDS: ACETAMINOPHEN 325 MG TABLET PO PRN ×2 (06:44→12:43)
[2017-12-26] MEDS: FOLIC ACID 1 MG TABLET PO SCH (09:41)
[2017-12-26] MEDS: ASPIRIN 325 MG TABLET, ENT COATED PO SCH (09:41)
[2017-12-26] MEDS: CALCIUM CARBONATE 250 MG/VITAMIN D3 125 UNIT TABLET PO SCH ×2 (09:41→14:12)
[2017-12-26] MEDS: ASCORBIC ACID 500 MG TABLET PO SCH (09:42)
[2017-12-26] MEDS: LOSARTAN POTASSIUM 50 MG TABLET PO SCH (09:42)
[2017-12-26] MEDS: MULTIVITAMIN TABLET PO SCH (09:42)
[2017-12-26] MEDS: THIAMINE HCL 100 MG TABLET PO SCH (09:42)
[2017-12-26] MEDS: AMLODIPINE BESYLATE 10 MG TABLET PO SCH (09:42)
[2017-12-26] MEDS: ENOXAPARIN SODIUM INJ 40 MG/0.4 ML DISP.SYRIN SUBCUT SCH (09:43)
[2017-12-26] MEDS ORDERED: PREGABALIN 75 MG CAPSULE PO SCH (10:00)
[2017-12-26] MEDS: CYANOCOBALAMIN (VITAMIN B-12) 1,000 MCG TABLET PO SCH (10:32)
[2017-12-26] MEDS ORDERED: POTASSIUM CHLORIDE 10 MEQ CAPSULE.ER PO ONE (16:00)
[2017-12-26 16:12] VITALS: BP 122/90
--- NOTE | 2017-12-26 16:46 | PDOC DISCHARGE SUMMARY ---
General - Admit/Disc Date/PCP Admission Date/Primary Care Provider: 12/24/17 20:20 MAU ASHRAF MD Discharge Date: 12/26/17 - Discharge Diagnosis (1) Hypertensive emergency Is this a current diagnosis for this admission?: Yes (2) Cervical radiculopathy Is this a current diagnosis for this admission?: Yes (3) Deformity of right shoulder joint Is this a current diagnosis for this admission?: Yes - Additional Information Resuscitation Status: Full Code Prescriptions: Hydralazine HCl [Apresoline 25 mg Tablet] 25 mg PO Q8 #90 tablet Pregabalin [Lyrica 75 mg Capsule] 75 mg PO BID #60 capsule Home Medications: Amlodipine Besylate [Norvasc 10 mg Tablet] 10 mg PO DAILY 12/24/17 Ascorbic Acid [Vitamin C 500 mg Tablet] 500 mg PO BID 12/24/17 Aspirin [Ecotrin 325 mg EC Tablet] 325 mg PO DAILY 12/24/17 Atorvastatin Calcium [Lipitor 20 mg Tablet] 20 mg PO QHS 12/24/17 Calcium Carbonate/Vitamin D3 [Os-Alexei 250 mg with Vitamin D 125 Units] 1 tab PO TID 12/24/17 Cyanocobalamin (Vitamin B-12) [Vitamin B-12 1000 mcg Tablet] 1,000 mcg PO DAILY 12/24/17 Ferrous Sulfate [Slow Release Iron] 250 mg PO DAILY 12/24/17 Folic Acid [Folvite 1 mg Tablet] 1 mg PO DAILY 12/24/17 Losartan Potassium [Cozaar 100 mg Tablet] 100 mg PO DAILY 12/24/17 Multivitamin [Tab-A-Adeline (Multiple Vitamin) Tablet] 1 tab PO DAILY 12/24/17 Thiamine HCl [Thiamine 100 mg Tablet] 100 mg PO DAILY 12/24/17 Hydralazine HCl [Apresoline 25 mg Tablet] 25 mg PO Q8 #90 tablet 12/26/17 Pregabalin [Lyrica 75 mg Capsule] 75 mg PO BID #60 capsule 12/26/17 History of Present Illness History of Present Illness: FREDDIE OCHOA is a 47 year old female, She came to the emergency room for evaluation of numbness of the right side of the body specifically right upper extremity associated with severely elevated blood pressure in the emergency hypertensive range. The systolic blood pressure recorded was over 200, MRI of the head was obtained there was no evidence of acute pathology, she was admitted to the hospital for the management of hypertensive emergency. She was started on Cardene infusion. Patient is very noncompliant she has poorly controlled blood pressure she has not had any follow-up evaluation in the office this year. She had a history of alcohol abuse, and tobacco abuse. She also have deformity of the right shoulder. On further questioning it seems that her symptoms is more consistent with cervical radiculopathy. Hospital Course Hospital Course: Patient was admitted for the management of hypertensive emergency, she was treated with intravenous nicardipine infusion with good results, she complains of numbness and weakness of the right upper extremities , symptom is more consistent with cervical radiculopathy, MRI neck was obtained, it demonstrated spinal stenosis of the cervical spine. She also have deformity of the right shoulder, MRI shoulder was obtained showed a tear of the right supraspinatus tendon.The anti-hypertensive medication was adjusted, she also was given Lyrica for the cervical radiculopathy. The plan is to discharge her home she will follow with instrument repair specialist for the cervical radiculopathy and orthopedic for the right shoulder Physical Exam Vital Signs: Temp Pulse Resp BP Pulse Ox 98.1 F 67 17 122/90 H 97 12/26/17 16:00 12/26/17 16:00 12/26/17 16:00 12/26/17 16:00 12/26/17 16:00 Intake & Output 12/25/17 12/26/17 12/27/17 06:59 06:59 06:59 Intake Total 228 894 780 Output Total 700 1550 300 Balance -472 -196 480 Weight 83.9 kg 82.5 kg General appearance: PRESENT: no acute distress, well-developed, well-nourished Head exam: PRESENT: atraumatic, normocephalic Eye exam: PRESENT: conjunctiva pink, EOMI, PERRLA Ear exam: PRESENT: normal external ear exam Mouth exam: PRESENT: moist, tongue midline Neck exam: PRESENT: full ROM Respiratory exam: PRESENT: clear to auscultation kelin Cardiovascular exam: PRESENT: RRR, +S1 Pulses: PRESENT: normal dorsalis pedis pul, +2 pedal pulses bilateral Vascular exam: PRESENT: normal capillary refill GI/Abdominal exam: PRESENT: normal bowel sounds, soft Rectal exam: PRESENT: deferred Neurological exam: PRESENT: alert, awake, oriented to person, oriented to place , oriented to time, oriented to situation, CN II-XII grossly intact Psychiatric exam: PRESENT: appropriate affect, normal mood Skin exam: PRESENT: dry, intact, warm Results Laboratory Results: 12/26/17 03:56 12/26/17 03:56 12/26/17 12/26/17 03:56 03:56 WBC 2.5 L RBC 4.21 Hgb 12.6 Hct 35.6 L MCV 85 MCH 29.9 MCHC 35.4 RDW 16.8 H Plt Count 134 L Seg Neutrophils % 53.2 Lymphocytes % 32.8 Monocytes % 11.8 Eosinophils % 1.7 Basophils % 0.5 Absolute Neutrophils 1.3 L Absolute Lymphocytes 0.8 Absolute Monocytes 0.3 Absolute Eosinophils 0.0 Absolute Basophils 0.0 Sodium 139.6 Potassium 3.3 L Chloride 104 Carbon Dioxide 26 Anion Gap 10 BUN 9 Creatinine 0.76 Est GFR ( Amer) > 60 Est GFR (Non-Af Amer) > 60 Glucose 78 Calcium 9.2 Total Bilirubin 0.7 AST 38 H ALT 33 Alkaline Phosphatase 66 Total Protein 6.5 Albumin 3.7 12/25/17 12/25/17 12/25/17 00:20 00:20 06:35 Creatine Kinase 112 106 CK-MB (CK-2) 0.68 Troponin I < 0.012 12/25/17 06:35 Creatine Kinase CK-MB (CK-2) 0.55 Troponin I < 0.012 Impressions: Head MRI 12/24/17 17:43 IMPRESSION: NORMAL MRI OF THE BRAIN WITHOUT INTRAVENOUS GADOLINIUM CONTRAST. EVIDENCE OF ACUTE STROKE: NO. Head CT 12/24/17 17:44 IMPRESSION: NORMAL BRAIN CT WITHOUT CONTRAST. EVIDENCE OF ACUTE STROKE: NO. Cervical Spine MRI 12/25/17 00:00 IMPRESSION: Multilevel degenerative change in the cervical and thoracic spine as described Reactive endplate changes and chronic wedging at C5-C6 and C7 Edema in the C7 vertebral body which may be related to reactive endplate change the possibility of mild marrow edema or mild compression not excluded Limited axial imaging with moderate central canal and severe bilateral neural foraminal stenosis at C5-6; moderate narrowing at C6-7 with severe bilateral neural foraminal stenosis Mild left-sided disc bulging at C4-5 with moderate narrowing of the left aspect of the thecal sac Shoulder X-Ray 12/25/17 00:00 IMPRESSION: No acute fracture dislocation identified. 2010 [employer]- All Rights Reserved Upper Extremity MRI 12/25/17 00:00 IMPRESSION: Partial-thickness bursal surface tear of the right supraspinatus tendon. Limitation. Qualifiers - * PATIENT BEING DISCHARGED WITH ANY OF THE FOLLOWING DIAGNOSIS: No
== END 2017-12-26 18:12 | disposition home or self-care (01) | DRG 305 ==
LOC: ER 15:52 → EH 20:20 → ICU 21:45
PROVIDERS: ADMIT Internal Medicine; ATTEND Internal Medicine
DX: I16.1 Hypertensive emergency (principal); M54.12 Radiculopathy, cervical region; I10 Essential (primary) hypertension; E11.8 Type 2 diabetes mellitus with unspecified complications; R20.0 Anesthesia of skin; M21.921 Unspecified acquired deformity of right upper arm; Z86.73 Personal history of transient ischemic attack (TIA), and cerebral infarction without residual deficits; Z87.891 Personal history of nicotine dependence; Z91.19 Patient's noncompliance with other medical treatment and regimen
CPT/HCPCS: 36415; 70450; 70551; 72141; 80053; 80061; 80307; 81001; 82140; 82150; 82550; 82553; 82962; 83036; 83690; 83735; 83880; 84100; 84439; 84443; 84484; 85025; 85610; 85730; 87040; 93005; 93010; 96374; 96375; 99285; J1650; J2060; J3010; J3490

== ENCOUNTER 2018-09-19 20:08 | Inpatient (IN) | payer OTHER ==
[2018-09-19] MEDS ORDERED: FENTANYL CITRATE INJ/PF 100 MCG/2 ML AMPUL IV ONE ×2 (20:41→22:54)
[2018-09-19] MEDS ORDERED: ONDANSETRON HCL INJ/PF 4 MG/2 ML SDV IV ONE (20:41)
[2018-09-19 21:15] LABS: ABSOLUTE EOSINOPHILS # (AUTO) 0.1 10^3/uL (0.0-0.6); ABSOLUTE LYMPHOCYTES (AUTO) 0.8 10^3/uL (0.5-4.7); ABSOLUTE MONOCYTES (AUTO) 0.2 10^3/uL (0.1-1.4); ABSOLUTE NEUT (AUTO) 5.2 10^3/uL (1.7-8.2); BASOPHILS % (AUTO) 0.3 % (0-2); EOSINOPHILS % (AUTO) 1.8 % (0-6); HEMATOCRIT 38.1 % (36.0-47.0); LYMPHOCYTES % (AUTO) 13.1 % (13-45); MEAN CORPUSCULAR HEMOGLOBIN 28.4 pg (27.0-33.4); MEAN CORPUSCULAR HGB CONC 34.2 g/dL (32.0-36.0); MEAN CORPUSCULAR VOLUME 83 fl (80-97); MONOCYTES % (AUTO) 3.7 % (3-13); PLATELET COUNT 185 10^3/uL (150-450); RED CELL DISTRIBUTION WIDTH 15.5 % (11.5-14.0); SEGMENTED NEUTROPHILS % (AUTO) 81.1 % (42-78); TOTAL CELLS COUNTED % (AUTO) 100 %; WHITE BLOOD COUNT 6.4 10^3/uL (4.0-10.5)
[2018-09-19 21:36] LABS: ALANINE AMINOTRANSFERASE 23 U/L (9-52); ALBUMIN 4.6 g/dL (3.5-5.0); ALKALINE PHOSPHATASE 98 U/L (38-126); ANION GAP 13 (5-19); ASPARTATE AMINO TRANSFERASE 37 U/L (14-36); BILIRUBIN,DIRECT 0.2 mg/dL (0.0-0.4); BILIRUBIN,TOTAL 0.4 mg/dL (0.2-1.3); BLOOD UREA NITROGEN 10 mg/dL (7-20); CALCIUM 9.7 mg/dL (8.4-10.2); CARBON DIOXIDE 25 mmol/L (22-30); CHLORIDE 106 mmol/L (98-107); GLUCOSE 112 mg/dL (75-110); LIPASE 66.3 U/L (23-300); POTASSIUM 4.1 mmol/L (3.6-5.0); TOTAL PROTEIN 7.8 g/dL (6.3-8.2)
[2018-09-19 22:17] LABS: APPEARANCE,URINE CLEAR; BILIRUBIN,URINE NEGATIVE (NEGATIVE); COLOR,URINE YELLOW; GLUCOSE, URINE NEGATIVE (NEGATIVE); KETONES,URINE TRACE mg/dL (NEGATIVE); LEUKOCYTE ESTERASE,URINE NEGATIVE (NEGATIVE); NITRITE,URINE NEGATIVE (NEGATIVE); PROTEIN,URINE 30 mg/dL (NEGATIVE); URINE SPECIFIC GRAVITY 1.019; UROBILINOGEN,URINE NEGATIVE mg/dL (<2.0)
--- NOTE | 2018-09-19 22:39 | RADIOLOGY REPORT (SQ) ---
EXAM DESCRIPTION: CT ABDOMEN PELVIS WITH IV CONTRAST COMPLETED DATE/TME: 09/19/2018 20:40 CLINICAL HISTORY: 47 years, Female, general pain COMPARISON: None. TECHNIQUE: [id number] Images stored on PACS. All CT scanners at this facility use dose modulation, iterative reconstruction, and/or weight based dosing when appropriate to reduce radiation dose to as low as reasonably achievable (ALARA). [facility]: Dose Right [facility]: CareDose [facility]: Dose Right [facility]: Teradose 4D [facility]: Movatu LIMITATIONS: None. FINDINGS: The visualized lung bases are unremarkable. Osseous structures are grossly intact. Post surgical changes in the epigastric region. Fatty infiltrative change to the liver. The spleen, adrenal glands, pancreas, kidneys are unremarkable. Nondilated fluid-filled loops of small bowel are present throughout the abdomen and pelvis without a focal transition point. Normal appendix. No free air. Equivocal/trace of free fluid in the pelvis. Large amount of stool throughout the colon. Note is made of a loop of telescoping bowel in the left upper quadrant consistent with intussusception. This is likely transient. This is near the site of anastomosis. IMPRESSION: Probable small bowel ileus, as above. Trace of free fluid in the pelvis. Post surgical changes. Note is made of an area of entero-enteral intussusception in the left upper quadrant near the anastomotic suture site. However there is no transition point at this site. Fatty infiltrative change to the liver. TECHNICAL DOCUMENTATION: Quality ID # [id number]: Final reports with documentation of one or more dose reduction techniques (e.g., Automated exposure control, adjustment of the mA and/or kV according to patient size, use of iterative reconstruction technique) copyright 2011 [employer]- All Rights Reserved
[2018-09-19] MEDS ORDERED: PROMETHAZINE HCL INJ 25 MG/1 ML VIAL IV ONE (22:54)
--- NOTE | 2018-09-19 22:58 | ER Document Report ---
ED General - General Chief Complaint: Abdominal Pain Stated Complaint: ABDOMINAL PAIN Time Seen by Provider: 09/19/18 20:31 Primary Care Provider: MAU ASHRAF MD [Primary Care Provider] - Follow up as needed Notes: Patient is a 47-year-old female presents to the emergency department for generalized "all over" abdominal pain starting at noon. Patient is also admitting to multiple episodes of vomiting is denying blood in her emesis. Patient's denying any fever, diarrhea, dysuria, vaginal discharge. Patient does have a surgical history of a gastric bypass, cholecystectomy, questionable hysterectomy. TRAVEL OUTSIDE OF THE [place] IN LAST 30 DAYS: No - Related Data Allergies/Adverse Reactions: No Known Allergies Allergy (Verified 09/19/18 20:11) Past Medical History - General Information source: Patient - Social History Smoking Status: Never Smoker Chew tobacco use (# tins/day): No Frequency of alcohol use: None Family History: Reviewed & Not Pertinent Patient has suicidal ideation: No Patient has homicidal ideation: No - Past Medical History Cardiac Medical History: Reports: Hx Hypertension Endocrine Medical History: Reports: Hx Diabetes Mellitus Type 2 Renal/ Medical History: Denies: Hx Peritoneal Dialysis Past Surgical History: Reports: Hx Abdominal Surgery, Hx Section, Hx Cholecystectomy, Hx Hysterectomy Review of Systems - Review of Systems Constitutional: denies: Fever EENT: No symptoms reported Cardiovascular: No symptoms reported Respiratory: No symptoms reported Gastrointestinal: See HPI Genitourinary: See HPI Female Genitourinary: See HPI Musculoskeletal: No symptoms reported Skin: No symptoms reported Hematologic/Lymphatic: No symptoms reported Neurological/Psychological: No symptoms reported Physical Exam - Vital signs Vitals: Temp Pulse Resp BP Pulse Ox 97.3 F 95 24 H 171/111 H 100 09/19/18 20:15 09/19/18 20:15 09/19/18 20:15 09/19/18 20:15 09/19/18 20:15 - Notes Notes: GENERAL: Alert, interacts well. Writhing around the bed in pain intermittently screaming out. HEAD: Normocephalic, atraumatic. EYES: Pupils equal, round, and reactive to light. Extraocular movements intact. ENT: Oral mucosa moist, tongue midline. NECK: Full range of motion. Supple. Trachea midline. LUNGS: Clear to auscultation bilaterally, no wheezes, rales, or rhonchi. No respiratory distress. HEART: Tachycardic rate and rhythm. No murmur ABDOMEN: Soft, Non-distended. Bowel sounds present in all 4 quadrants. Generalized tenderness noted entire abdomen EXTREMITIES: Moves all 4 extremities spontaneously. No edema, normal radial and dorsalis pedis pulses bilaterally. No cyanosis. BACK: no cervical, thoracic, lumbar midline tenderness. No saddle anesthesia, normal distal neurovascular exam. No CVA tenderness noted bilaterally NEUROLOGICAL: Alert and oriented x3. Normal speech. cranial nerves II through X II grossly intact PSYCH: Normal affect, normal mood. SKIN: Warm, dry, normal turgor. No rashes or lesions noted. Course - Re-evaluation Re-evalutation: Abdomen/Pelvis CT 09/19/18 20:40 IMPRESSION: Probable small bowel ileus, as above. Trace of free fluid in the pelvis. Post surgical changes. Note is made of an area of entero-enteral intussusception in the left upper quadrant near the anastomotic suture site. However there is no transition point at this site. Fatty infiltrative change to the liver. TECHNICAL DOCUMENTATION: Quality ID # 436: Final reports with documentation of one or more dose reduction techniques (e.g., Automated exposure control, adjustment of the mA and/or kV according to patient size, use of iterative reconstruction technique) copyright 2011 [employer]- All Rights Reserved 09/19/18 22:58 Discussed this case with surgical asked to Dr. Ceja. He states he will come to the emergency room to evaluate the patient. Patient continues to be in moderate distress sitting on the edge of the bed rocking back and forth. She states she still is nauseated. Repeat antiemetics and pain medication ordered. 09/19/18 23:03 09/19/18 23:40 Dr. Ceja is at patient bedside. She continues to have pain out of proportion to her abdominal examination. He has reviewed CT imaging and states he is going to take the patient's to the operating room. Charge nurse staff made aware. - Vital Signs Vital signs: Temp Pulse Resp BP Pulse Ox 97.3 F 95 24 H 171/111 H 100 09/19/18 20:15 09/19/18 20:15 09/19/18 20:15 09/19/18 20:15 09/19/18 20:15 - Laboratory Result Diagrams: 09/19/18 20:48 09/19/18 20:48 Laboratory results interpreted by me: 09/19/18 09/19/18 09/19/18 20:48 20:48 21:55 RDW 15.5 H Seg Neutrophils % 81.1 H Glucose 112 H AST 37 H Urine Protein 30 H Urine Ketones TRACE H Discharge - Discharge Clinical Impression: Ileus, Intussusception Abdominal pain Qualifiers: Abdominal location: generalized Qualified Code(s): R10.84 - Generalized abdominal pain Condition: Good Disposition: ADMITTED INPATIENT Admitting Provider: Surgicalist - Dr. Ceja Unit Admitted: OR Referrals: MAU ASHRAF MD [Primary Care Provider] - Follow up as needed
--- NOTE | 2018-09-19 23:42 | PDOC H&P ---
History of Present Illness Admission Date/PCP: 09/19/18 Patient complains of: abdominal pain History of Present Illness: FREDDIE OCHOA is a 47 year old femalePatient [facility] for generalized "all over" abdominal pain starting at noon. Patient is also admitting to multiple episodes of vomiting is denying blood in her emesis. Patient's denying any fever, diarrhea, dysuria, vaginal discharge. had a gastric bypass in 2004 never had c/o abdominal pain before feels crampy abd pain now with nausea, vomiting, unable to pass flatus Past Medical History Cardiac Medical History: Reports: Hypertension Endocrine Medical History: Reports: Diabetes Mellitus Type 2 GI Medical History: Reports: Other - hx of gastric bypass Past Surgical History Past Surgical History: Reports: Section, Cholecystectomy, Gastric Bypass Surgery, Hysterectomy Social History Smoking Status: Never Smoker Frequency of Alcohol Use: Rare Hx Recreational Drug Use: No Drugs: None Hx Prescription Drug Abuse: No Family History Family History: Reviewed & Not Pertinent Parental Family History Reviewed: No Children Family History Reviewed: NA Sibling(s) Family History Reviewed.: NA Medication/Allergy Home Medications: Amlodipine Besylate [Norvasc 10 mg Tablet] 10 mg PO DAILY 12/24/17 Ascorbic Acid [Vitamin C 500 mg Tablet] 500 mg PO BID 12/24/17 Aspirin [Ecotrin 325 mg EC Tablet] 325 mg PO DAILY 12/24/17 Atorvastatin Calcium [Lipitor 20 mg Tablet] 20 mg PO QHS 12/24/17 Calcium Carbonate/Vitamin D3 [Os-Alexei 250 mg with Vitamin D 125 Units] 1 tab PO TID 12/24/17 Cyanocobalamin (Vitamin B-12) [Vitamin B-12 1000 mcg Tablet] 1,000 mcg PO DAILY 12/24/17 Ferrous Sulfate [Slow Release Iron] 250 mg PO DAILY 12/24/17 Folic Acid [Folvite 1 mg Tablet] 1 mg PO DAILY 12/24/17 Losartan Potassium [Cozaar 100 mg Tablet] 100 mg PO DAILY 12/24/17 Multivitamin [Tab-A-Adeline (Multiple Vitamin) Tablet] 1 tab PO DAILY 12/24/17 Thiamine HCl [Thiamine 100 mg Tablet] 100 mg PO DAILY 12/24/17 Hydralazine HCl [Apresoline 25 mg Tablet] 25 mg PO Q8 #90 tablet 12/26/17 Pregabalin [Lyrica 75 mg Capsule] 75 mg PO BID #60 capsule 12/26/17 Allergies/Adverse Reactions: No Known Allergies Allergy (Verified 09/19/18 20:11) Review of Systems Constitutional: PRESENT: anorexia, headache(s) Eyes: ABSENT: visual disturbances Ears: ABSENT: hearing changes Nose, Mouth, and Throat: ABSENT: as per HPI, headache(s), mouth pain, sore throat, vertigo, other Breasts: ABSENT: as per HPI, other Cardiovascular: ABSENT: as per HPI, chest pain, dyspnea on exertion, edema, orth ropnea, palpitations, other Respiratory: ABSENT: cough, hemoptysis Genitourinary: ABSENT: dysuria, hematuria Musculoskeletal: ABSENT: joint swelling Integumentary: ABSENT: rash, wounds Neurological: ABSENT: abnormal gait, abnormal speech, confusion, dizziness, focal weakness, syncope Psychiatric: ABSENT: anxiety, depression, homidical ideation, suicidal ideation Endocrine: ABSENT: cold intolerance, heat intolerance, polydipsia, polyuria Hematologic/Lymphatic: ABSENT: easy bleeding, easy bruising Physical Exam Vital Signs: Temp Pulse Resp BP Pulse Ox 97.3 F 95 24 H 171/111 H 100 09/19/18 20:15 09/19/18 20:15 09/19/18 20:15 09/19/18 20:15 09/19/18 20:15 Intake & Output 09/18/18 09/19/18 09/20/18 06:59 06:59 06:59 Weight 77.111 kg General appearance: PRESENT: severe distress, other - writhing in pain screeming with cramping Eye exam: PRESENT: conjunctiva pink, EOMI, PERRLA Mouth exam: PRESENT: dry mucosa Teeth exam: PRESENT: poor dentation Neck exam: PRESENT: full ROM Respiratory exam: PRESENT: clear to auscultation kelin Cardiovascular exam: PRESENT: RRR Pulses: PRESENT: normal carotid pulses, normal radial pulses, normal femoral pulses GI/Abdominal exam: PRESENT: diminished bowel sounds, distended, firm, other - pain out of proportion to exam Gentrourinary exam: PRESENT: other Extremities exam: PRESENT: full ROM Musculoskeletal exam: PRESENT: full ROM Neurological exam: PRESENT: alert, awake, oriented to place Skin exam: PRESENT: dry Results Laboratory Results: 09/19/18 20:48 09/19/18 20:48 0509/19/[id number] 09/19/18 20:48 20:48 21:55 WBC 6.4 RBC 4.60 Hgb 13.0 Hct 38.1 MCV 83 MCH 28.4 MCHC 34.2 RDW 15.5 H Plt Count 185 Seg Neutrophils % 81.1 H Lymphocytes % 13.1 Monocytes % 3.7 Eosinophils % 1.8 Basophils % 0.3 Absolute Neutrophils 5.2 Absolute Lymphocytes 0.8 Absolute Monocytes 0.2 Absolute Eosinophils 0.1 Absolute Basophils 0.0 Sodium 144.0 Potassium 4.1 Chloride 106 Carbon Dioxide 25 Anion Gap 13 BUN 10 Creatinine 0.99 Est GFR ( Amer) > 60 Est GFR (Non-Af Amer) > 60 Glucose 112 H Calcium 9.7 Total Bilirubin 0.4 AST 37 H ALT 23 Alkaline Phosphatase 98 Total Protein 7.8 Albumin 4.6 Lipase 66.3 Urine Color YELLOW Urine Appearance CLEAR Urine pH 5.0 Ur Specific [place] 1.019 Urine Protein 30 H Urine Glucose (UA) NEGATIVE Urine Ketones TRACE H Urine Blood NEGATIVE Urine Nitrite NEGATIVE Ur Leukocyte Esterase NEGATIVE Urine WBC (Auto) 0 Urine RBC (Auto) 0 Impressions: Abdomen/Pelvis CT 09/19/18 20:40 IMPRESSION: Probable small bowel ileus, as above. Trace of free fluid in the pelvis. Post surgical changes. Note is made of an area of entero-enteral intussusception in the left upper quadrant near the anastomotic suture site. However there is no transition point at this site. Fatty infiltrative change to the liver. TECHNICAL DOCUMENTATION: Quality ID # 436: Final reports with documentation of one or more dose reduction techniques (e.g., Automated exposure control, adjustment of the mA and/or kV according to patient size, use of iterative reconstruction technique) copyright 2011 [employer]- All Rights Reserved Assessment & Plan - Diagnosis (1) Status post gastric bypass for obesity Is this a current diagnosis for this admission?: Yes (2) Intussusception intestine Is this a current diagnosis for this admission?: Yes Plan: To OR for exploratory Laparotomy and possible Gastric Bypass revision risks/benifits discussed with pt and family the understand possible injury to adjacent organs infection stroke, cva, mi, possible need for additional surgery,risk of hernia formation she understnds and agrees to proceed.
[2018-09-19] MEDS ORDERED: METRONIDAZOLE 500 MG/NS RTU 500 MG/100 ML RTUPB IV ONE (23:59)
[2018-09-20] MEDS ORDERED: CEFAZOLIN 1 GM/D5W RTU 1 GM/50 ML RTUPB IV SCH
[2018-09-20] MEDS ORDERED: KETOROLAC TROMETHAMINE 60 MG/2 ML SDV ONE (00:26)
[2018-09-20] MEDS ORDERED: PROPOFOL INJ 200 MG/20 ML VIAL IV ONE (00:27)
[2018-09-20] MEDS ORDERED: DEXAMETHASONE SOD PHOSPHATE INJ 4 MG/1 ML VIAL ONE (00:27)
[2018-09-20] MEDS ORDERED: MIDAZOLAM 2 MG/2 ML INJ ONE (00:27)
[2018-09-20] MEDS ORDERED: ACETAMINOPHEN 1,000 MG/100 ML RTUPB IV ONE (00:27)
[2018-09-20] MEDS ORDERED: FENTANYL CITRATE INJ/PF 100 MCG/2 ML AMPUL ONE (00:27)
[2018-09-20] MEDS ORDERED: MORPHINE SULFATE 10 MG/ML INJ ONE (00:27)
[2018-09-20] MEDS ORDERED: ONDANSETRON HCL INJ/PF 4 MG/2 ML SDV ONE (00:27)
[2018-09-20] MEDS ORDERED: EPHEDRINE SULFATE INJ 50 MG/1 ML AMPULE ONE (00:28)
[2018-09-20] MEDS ORDERED: BUPIVACAINE HCL 0.5%-EPI 1:200000 INJ/PF 30 ML VIAL ONE (01:43)
[2018-09-20] MEDS ORDERED: MORPHINE SULFATE 10 MG/ML INJ IV PRN (02:01)
[2018-09-20] MEDS ORDERED: PROMETHAZINE HCL INJ 25 MG/1 ML VIAL IV PRN ×2 (02:01)
[2018-09-20] MEDS ORDERED: ONDANSETRON HCL INJ/PF 4 MG/2 ML SDV IV PRN (02:01)
[2018-09-20] MEDS ORDERED: FENTANYL CITRATE INJ/PF 100 MCG/2 ML AMPUL IV PRN ×3 (02:01)
[2018-09-20] MEDS ORDERED: OXYCODONE-ACETAMINOPHEN 5-325 MG TABLET PO PRN ×2 (02:01)
[2018-09-20] MEDS ORDERED: DIPHENHYDRAMINE HCL 50 MG/ML VIAL IV PRN (02:01)
[2018-09-20] MEDS ORDERED: MEPERIDINE HCL/PF INJ 25 MG/1 ML DISP.SYRIN IV PRN (02:01)
[2018-09-20] MEDS ORDERED: GLUCAGON,HUMAN RECOMB 1 MG INJ SUBCUT PRN (02:49)
[2018-09-20] MEDS ORDERED: DEXTROSE 50%-WATER 25 GM/50 ML DISP.SYRIN IV PRN ×2 (02:49)
[2018-09-20] MEDS ORDERED: DEXTROSE 40% GEL 15 GM TUBE PO PRN ×2 (02:49)
--- NOTE | 2018-09-20 02:49 | Operative Report ---
Nonrecallable Operative Report DATE OF SURGERY: 09/20/18 PREOPERATIVE DIAGNOSIS: intussusception, small bowel obstruction,s/p gastric bypass POSTOPERATIVE DIAGNOSIS: intussusception, small bowel obstruction,s/p gastric bypass OPERATION: exploratory laparotomy,lysis of adhesions,gastric bypass revision SURGEON: JOSE LUIS FABIAN ANESTHESIA: GA TISSUE REMOVED OR ALTERED: none COMPLICATIONS: none ESTIMATED BLOOD LOSS: 50cc INTRAOPERATIVE FINDINGS: see dictation PROCEDURE: see dictation
[2018-09-20] MEDS ORDERED: PHARMACY COMMUNICATION ORDER MC NR (03:00)
[2018-09-20] MEDS ORDERED: KETOROLAC TROMETHAMINE INJ/PF 30 MG/1 ML SDV IV SCH (03:15)
[2018-09-20] MEDS ORDERED: OXYCODONE-ACETAMINOPHEN 5-325 MG TABLET NG PRN ×2 (03:30)
[2018-09-20] MEDS ORDERED: CEFAZOLIN 1 GM/D5W RTU 1 GM/50 ML RTUPB IV ONE (04:40)
[2018-09-20] MEDS: MORPHINE SULFATE 10 MG/ML INJ IV PRN ×6 (04:48→21:49)
[2018-09-20] MEDS: ONDANSETRON HCL INJ/PF 4 MG/2 ML SDV IV PRN (04:49)
[2018-09-20] MEDS ORDERED: HYDRALAZINE HCL INJ/PF 20 MG/1 ML SDV ONE ×2 (05:03→07:00)
[2018-09-20] MEDS: CEFAZOLIN 1 GM/D5W RTU 1 GM/50 ML RTUPB IV SCH ×4 (05:09→23:27)
[2018-09-20] MEDS: DEXTROSE 5%-LACTATED RINGERS 1,000 ML IV PRN ×3 (05:10→21:45)
[2018-09-20] MEDS: KETOROLAC TROMETHAMINE INJ/PF 30 MG/1 ML SDV IV PRN (06:40)
[2018-09-20] MEDS ORDERED: HYDRALAZINE HCL INJ/PF 20 MG/1 ML SDV IV PRN (07:01)
[2018-09-20 09:46] LABS: ANION GAP 11 (5-19); BLOOD UREA NITROGEN 11 mg/dL (7-20); CALCIUM 9.3 mg/dL (8.4-10.2); CARBON DIOXIDE 25 mmol/L (22-30); CHLORIDE 105 mmol/L (98-107); GLUCOSE 185 mg/dL (75-110); POTASSIUM 3.9 mmol/L (3.6-5.0); SODIUM 140.9 mmol/L (137-145)
[2018-09-20] MEDS ORDERED: CLONIDINE 0.1 MG/24 HR PATCH.TDWK TD SCH (10:00)
[2018-09-20] MEDS ORDERED: ENALAPRILAT DIHYDRATE INJ/PF 1.25 MG/1 ML SDV IV SCH (10:00)
[2018-09-20] MEDS ORDERED: SUCCINYLCHOLINE CHLORIDE INJ 200 MG/10 ML VIAL ONE (10:03)
[2018-09-20] MEDS ORDERED: NEOSTIGMINE METHYLSULFATE 10 MG/10 ML VIAL ONE (10:03)
[2018-09-20] MEDS ORDERED: GLYCOPYRROLATE 1 MG/5 ML SYRINGE ONE (10:03)
[2018-09-20] MEDS ORDERED: ROCURONIUM BROMIDE INJ 50 MG/5 ML VIAL IV ONE (10:03)
[2018-09-20] MEDS: FAMOTIDINE INJ/PF 20 MG/2 ML SDV IV SCH ×2 (10:36→21:54)
[2018-09-20] MEDS: ENOXAPARIN SODIUM INJ 40 MG/0.4 ML DISP.SYRIN SUBCUT SCH (10:36)
[2018-09-20] MEDS: HYDRALAZINE HCL INJ/PF 20 MG/1 ML SDV IV SCH ×3 (11:51→23:34)
[2018-09-20] MEDS: INSULIN LISPRO 100 UNIT/ML 3 ML VIAL SUBCUT SCH ×3 (11:52→23:28)
[2018-09-20] MEDS: METOPROLOL TARTRATE PF/INJ 5 MG/5 ML SDV IV SCH ×4 (12:27→22:00)
--- NOTE | 2018-09-20 14:59 | PDOC CONSULTATION ---
Consultation Consult Date: 09/20/18 Attending physician:: JOSE LUIS FABIAN Consult reason:: Hypertensive urgency, tachycardia History of Present Illness Admission Date/PCP: 09/19/18 23:47 MAU ASHRAF MD Patient complains of: Abdominal pain History of Present Illness: FREDDIE OCHOA is a 47 year old female the patient presented to the emergency department with acute onset diffuse abdominal pain. In addition she had nausea and vomiting. She denied any fever, recent diarrhea, dysuria or vaginal discharge. She did have a gastric bypass in 2004 but never had pain like this before. Patient was admitted by surgery. Diagnostic imaging revealed an intussusception. Postoperatively the patient was noted to have hypertensive urgency. Blood pressure was 209/124 with a pulse of 126. Hospital service was contacted by Dr. Fabian to consult and treat the hypertension and tachycardia. Past Medical History Cardiac Medical History: Reports: Hypertension - She was admitted to the hospital in 2018 for hypertensive urgency. EENT Medical History: Reports: Other - The patient reports a history of strokes Endocrine Medical History: Reports: Diabetes Mellitus Type 2 GI Medical History: Reports: Other - hx of gastric bypass Psychiatric Medical History: Reports: Depression Hematology: Reports: Anemia Past Surgical History Past Surgical History: Reports: Section, Cholecystectomy, Gastric Bypass Surgery, Hysterectomy Social History Information Source: Patient, [facility] Records Smoking Status: Current Some Day Smoker Cigarettes Packs Per Day: 0.5 Number of Years Smokin Last Time Smoked: 09/19/2018 Frequency of Alcohol Use: Occasional Hx Recreational Drug Use: Yes Drugs: Marijuana Hx Prescription Drug Abuse: No - Advance Directive Resuscitation Status: Full Code Family History Family History: Reviewed & Not Pertinent Parental Family History Reviewed: Yes Children Family History Reviewed: Yes Sibling(s) Family History Reviewed.: Yes Medication/Allergy Home Medications: Ascorbic Acid [Vitamin C 500 mg Tablet] 500 mg PO BID 12/24/17 Aspirin [Ecotrin 325 mg EC Tablet] 325 mg PO DAILY 12/24/17 Cyanocobalamin (Vitamin B-12) [Vitamin B-12 1000 mcg Tablet] 1,000 mcg PO DAILY 12/24/17 Ferrous Sulfate [Slow Release Iron] 250 mg PO DAILY 12/24/17 Folic Acid [Folvite 1 mg Tablet] 1 mg PO DAILY 12/24/17 Multivitamin [Tab-A-Adeline (Multiple Vitamin) Tablet] 1 tab PO DAILY 12/24/17 Allergies/Adverse Reactions: No Known Allergies Allergy (Verified 09/20/18 05:41) Review of Systems Constitutional: PRESENT: headache(s). ABSENT: chills, fever(s) Eyes: PRESENT: visual disturbances - Occasional episodes of blurry vision that resolved spontaneously Ears: ABSENT: hearing changes Nose, Mouth, and Throat: ABSENT: mouth pain, sore throat Cardiovascular: PRESENT: other - Tachycardia. ABSENT: chest pain, orthropnea Respiratory: ABSENT: cough, hemoptysis Gastrointestinal: PRESENT: abdominal pain - She has several hours postop., diarrhea, nausea. ABSENT: constipation, heartburn, vomiting Genitourinary: ABSENT: dysuria, hematuria Musculoskeletal: PRESENT: back pain - Chronic back and neck pain Integumentary: PRESENT: other - New midline abdominal incision Neurological: PRESENT: paresthesias - Complains of numbness fingers and toes on the right. ABSENT: abnormal movements, abnormal speech, syncope, tremor(s) Psychiatric: ABSENT: anxiety, depression, hallucinations Endocrine: ABSENT: cold intolerance, heat intolerance Hematologic/Lymphatic: ABSENT: easy bruising, lymphadenopathy Allergic/Immunologic: ABSENT: seasonal rhinorrhea Physical Exam Vital Signs: Temp Pulse Resp BP Pulse Ox 98.4 F 126 H 24 H 175/103 H 98 09/20/18 07:38 09/20/18 07:38 09/20/18 07:38 09/20/18 07:38 09/20/18 07:38 Intake & Output 09/19/18 09/20/18 09/21/18 06:59 06:59 06:59 Intake Total 2350 Output Total 515 Balance 1835 Weight 77.1 kg General appearance: PRESENT: cooperative - Limited responses to the pain, mild distress - Mild to moderate, well-developed Head exam: PRESENT: atraumatic, normocephalic Eye exam: PRESENT: conjunctiva pink, EOMI, PERRLA. ABSENT: scleral icterus Ear exam: PRESENT: normal external ear exam Mouth exam: PRESENT: dry mucosa, tongue midline Neck exam: ABSENT: carotid bruit, JVD, lymphadenopathy Respiratory exam: PRESENT: clear to auscultation kelin - Decreased inspiratory effort due to abdominal pain, symmetrical. ABSENT: accessory muscle use, rales, rhonchi, tachypnea, wheezes Cardiovascular exam: PRESENT: RRR, +S1, +S2, systolic murmur - 2/6 GI/Abdominal exam: PRESENT: distended, guarding, hypoactive bowel sounds, tenderness, other - New midline incision Rectal exam: PRESENT: deferred Extremities exam: ABSENT: pedal edema Neurological exam: PRESENT: awake, oriented to person, oriented to place, oriented to time, oriented to situation. ABSENT: alert - Slightly somnolent possibly due to effects of medication Psychiatric exam: PRESENT: appropriate affect - Affect reflects her pain Results Laboratory Results: 09/19/18 20:48 09/19/18 20:48 09/19/18 09/19/18 09/19/18 20:48 20:48 21:55 WBC 6.4 RBC 4.60 Hgb 13.0 Hct 38.1 MCV 83 MCH 28.4 MCHC 34.2 RDW 15.5 H Plt Count 185 Seg Neutrophils % 81.1 H Lymphocytes % 13.1 Monocytes % 3.7 Eosinophils % 1.8 Basophils % 0.3 Absolute Neutrophils 5.2 Absolute Lymphocytes 0.8 Absolute Monocytes 0.2 Absolute Eosinophils 0.1 Absolute Basophils 0.0 Sodium 144.0 Potassium 4.1 Chloride 106 Carbon Dioxide 25 Anion Gap 13 BUN 10 Creatinine 0.99 Est GFR ( Amer) > 60 Est GFR (Non-Af Amer) > 60 Glucose 112 H Lactic Acid Calcium 9.7 Total Bilirubin 0.4 AST 37 H ALT 23 Alkaline Phosphatase 98 Total Protein 7.8 Albumin 4.6 Lipase 66.3 Urine Color YELLOW Urine Appearance CLEAR Urine pH 5.0 Ur Specific [place] 1.019 Urine Protein 30 H Urine Glucose (UA) NEGATIVE Urine Ketones TRACE H Urine Blood NEGATIVE Urine Nitrite NEGATIVE Ur Leukocyte Esterase NEGATIVE Urine WBC (Auto) 0 Urine RBC (Auto) 0 09/19/18 23:15 WBC RBC Hgb Hct MCV MCH MCHC RDW Plt Count Seg Neutrophils % Lymphocytes % Monocytes % Eosinophils % Basophils % Absolute Neutrophils Absolute Lymphocytes Absolute Monocytes Absolute Eosinophils Absolute Basophils Sodium Potassium Chloride Carbon Dioxide Anion Gap BUN Creatinine Est GFR ( Amer) Est GFR (Non-Af Amer) Glucose Lactic Acid 2.2 H Calcium Total Bilirubin AST ALT Alkaline Phosphatase Total Protein Albumin Lipase Urine Color Urine Appearance Urine pH Ur Specific [place] Urine Protein Urine Glucose (UA) Urine Ketones Urine Blood Urine Nitrite Ur Leukocyte Esterase Urine WBC (Auto) Urine RBC (Auto) Impressions: Abdomen/Pelvis CT 09/19/18 20:40 IMPRESSION: Probable small bowel ileus, as above. Trace of free fluid in the pelvis. Post surgical changes. Note is made of an area of entero-enteral intussusception in the left upper quadrant near the anastomotic suture site. However there is no transition point at this site. Fatty infiltrative change to the liver. TECHNICAL DOCUMENTATION: Quality ID # 436: Final reports with documentation of one or more dose reduction techniques (e.g., Automated exposure control, adjustment of the mA and/or kV according to patient size, use of iterative reconstruction technique) copyright 2011 [employer]- All Rights Reserved Assessment and Plan - Diagnosis (1) Hypertensive urgency Is this a current diagnosis for this admission?: Yes Plan: Blood pressure and pulse were quite high. Patient has a history of hypertension. She was admitted in 2018 for hypertensive urgency. She admits that she has not been taking her antihypertensive medications. She states that she has no money and she cannot afford them. Because of her strict n.p.o. status I have ordered scheduled Lopressor, scheduled hydralazine and a 0.1 clonidine patch. She is on oral hydralazine and is also supposed to be on losartan. I will order IV enalapril if needed. Within 2 to 3 hours her blood pressures are much better. Her tachycardia is improved. Her diastolic pressures are in the 1 45-1 65 range and her pulse rate is between 85 and 95. With her noncompliance and probable high blood pressure for the last several months I do not want to drop her too fast. As soon as she begins an oral diet we can resume her hydralazine and losartan. We can use oral metoprolol if she remains tachycardic. (2) Tachycardia Is this a current diagnosis for this admission?: Yes Plan: As noted above, postoperatively the patient was markedly tachycardic and hypertensive. It was a sinus tachycardia. She has no profound electrolyte abnormalities. She is responding well to the current scheduled IV Lopressor, IV hydralazine and clonidine 0.1 mg patch. Additional hydralazine is available on an as-needed basis. We will continue this regimen until she is able to take an oral diet and then convert medications to p.o. (3) Intussusception intestine Is this a current diagnosis for this admission?: Yes Plan: The patient was taken to surgery earlier this morning. Please see Dr. Fabian's notes regarding the actual procedure. She is currently n.p.o. She did pull her nasogastric tube out in PACU. Evidently she tried to self extubate as well. At this time we are going to leave the NG tube out because the patient will likely just remove it herself anyway. - Time Time Spent with patient: 55 minutes Time Spent with patient: 35 or more minutes Medications reviewed and adjusted accordingly: Yes - Inpatient Certification Based on my medical assessment, after consideration of the patient's comorbidities, presenting symptoms, or acuity I expect that the services needed warrant INPATIENT care.: Yes I certify that my determination is in accordance with my understanding of Medicare's requirements for reasonable and necessary INPATIENT services [42 CFR 412.3e].: Yes Medical Necessity: Other - IV antihypertensive medications
--- NOTE | 2018-09-20 18:44 | OPERATIVE REPORT E ---
Operative Report NAME: FREDDIE OCHOA : 1970 AGE: 47Y DATE OF SURGERY: 09/20/2018 ROOM: 309 PREOPERATIVE DIAGNOSIS: INTUSSUSCEPTION, STATUS POST GASTRIC BYPASS WITH SMALL BOWEL OBSTRUCTION. POSTOPERATIVE DIAGNOSIS: INTUSSUSCEPTION, STATUS POST GASTRIC BYPASS WITH SMALL BOWEL OBSTRUCTION. OPERATION: Exploratory laparotomy with lysis of adhesions and gastric bypass revision. SURGEON: JOSE LUIS FABIAN M.D. INDICATIONS FOR OPERATION: This is 47-year-old female who presented to the emergency room this evening with severe abdominal pain. She is status post gastric bypass approximately 10 years ago. She underwent a CT scan in the ER which showed a possible intussusception of the biliary limb, and she was emergently brought to the operating room for this procedure. PROCEDURE: Patient was brought to the operating room in awake, alert and stable condition, placed on the operating table in supine position, induced under general anesthesia and intubated. The abdomen was prepped and draped in the usual sterile manner for the procedure. A midline incision was used from the xiphoid to the umbilicus. Dissection was carried down through subcutaneous tissue with Bovie cautery. Midline fascia was entered. Patient had extensive adhesions of omentum to the anterior abdominal wall, as well as a loop of small bowel that was adhesed to the undersurface of the umbilicus. This took meticulous sharp dissection to mobilize that small bowel loop away from the anterior abdominal adhesion without injuring the serosa. We were able to do that and then eventually mobilize the omentum away from the anterior abdominal wall so that we could eviscerate the small bowel. Once we did that, there were a number of small bowel adhesions to the omentum, which was causing one of them in the distal small bowel to be twisted upon itself and obstructed. Once we divided the adhesive bands away from the omentum, the bowel untwisted and decompressed. Patient had a large amount of gas and air, as well as fatty enteric contents within the small bowel, with her lacteals being very evident in the mesentery of the small bowel, as well as the serosa. Once we were able to do this, we then ran the small bowel from the terminal ileum all the way proximally to where I noted the biliary anastomosis. The biliary anastomosis appeared to be somewhat twisted on itself because of adhesions, giving the appearance of an intussusception. I untwisted it and took down the mesenteric repair so that it could be redone in a manner that allowed for isoperistaltic movement between the biliary limb and the common channel. At this point, it was an anti-peristaltic anastomosis possibly causing the intussusception. Once I took down the mesenteric repair, I then reclosed the mesenteric defect with interrupted 2-0 silk, allowing it to be in a position isoperistaltic to the alimentary limb. We then ran the Smiley limb up to the gastric pouch and then I was able, after much manipulation with the meat process worker, to pass an NG tube past the gastrojejunostomy, into the proximal Smiley limb to allow for decompression of the small bowel. I then milked back about a liter of enteric contents and resuctioned it out via the NG tube. Once this was completed, I left the drain at the area of the gastrojejunostomy, because of the significant manipulation that was required to pass the NG tube. We did not have an injury to the enteric limb or the gastrojejunostomy, but I left the drain, because of some bleeding from the adhesiolysis of the mesentery and small bowel away from the liver edge. Once we completely freed up the small bowel, confirmed that we had a normal Smiley-en-Y gastric bypass anatomy with a Y anastomosis that was isoperistaltic and a gastrojejunostomy that was intact. She had a fairly short Smiley limb that was only approximately 50 to 60 cm, which may have accounted for her poor weight loss. We then returned the small bowel to the abdominal cavity, irrigated with normal saline, suctioned dry, and returned the omentum to the top of the small bowel, and then closed the midline fascia with a running double-looped 0 PDS suture, and closed the skin with standard skin clips, which completed the procedure. Estimated blood loss was less than 50 mL. Sponge and needle counts were correct x2. The patient was awakened in the operating room, extubated and transferred to recovery in stable condition, with no complications. DICTATING PHYSICIAN: JOSE LUIS FABIAN M.D. [id number] PHY#: [id number] ID: [id number] JOB#: [id number] ACCT: [id number] cc:JOSE LUIS FABIAN M.D. >
[2018-09-21] MEDS: METOPROLOL TARTRATE PF/INJ 5 MG/5 ML SDV IV SCH ×6 (02:39→21:57)
[2018-09-21 05:17] LABS: ABSOLUTE EOSINOPHILS # (AUTO) 0.1 10^3/uL (0.0-0.6); ABSOLUTE LYMPHOCYTES (AUTO) 0.5 10^3/uL (0.5-4.7); ABSOLUTE MONOCYTES (AUTO) 0.2 10^3/uL (0.1-1.4); ABSOLUTE NEUT (AUTO) 4.8 10^3/uL (1.7-8.2); BASOPHILS % (AUTO) 0.2 % (0-2); EOSINOPHILS % (AUTO) 1.3 % (0-6); HEMATOCRIT 32.9 % (36.0-47.0); HEMOGLOBIN 11.5 g/dL (12.0-15.5); LYMPHOCYTES % (AUTO) 9.3 % (13-45); MEAN CORPUSCULAR HEMOGLOBIN 28.6 pg (27.0-33.4); MEAN CORPUSCULAR HGB CONC 34.8 g/dL (32.0-36.0); MEAN CORPUSCULAR VOLUME 82 fl (80-97); MONOCYTES % (AUTO) 4.1 % (3-13); PLATELET COUNT 149 10^3/uL (150-450); RED BLOOD COUNT 4.01 10^6/uL (3.72-5.28); RED CELL DISTRIBUTION WIDTH 15.6 % (11.5-14.0); SEGMENTED NEUTROPHILS % (AUTO) 85.1 % (42-78); TOTAL CELLS COUNTED % (AUTO) 100 %; WHITE BLOOD COUNT 5.6 10^3/uL (4.0-10.5)
[2018-09-21] MEDS: MORPHINE SULFATE 10 MG/ML INJ IV PRN ×4 (05:47→18:02)
[2018-09-21] MEDS: HYDRALAZINE HCL INJ/PF 20 MG/1 ML SDV IV SCH ×4 (05:51→23:25)
[2018-09-21 05:52] LABS: ANION GAP 7 (5-19); BLOOD UREA NITROGEN 11 mg/dL (7-20); CALCIUM 9.1 mg/dL (8.4-10.2); CARBON DIOXIDE 28 mmol/L (22-30); CHLORIDE 105 mmol/L (98-107); GLUCOSE 98 mg/dL (75-110); POTASSIUM 3.5 mmol/L (3.6-5.0); SODIUM 140.3 mmol/L (137-145)
[2018-09-21] MEDS: CEFAZOLIN 1 GM/D5W RTU 1 GM/50 ML RTUPB IV SCH ×4 (05:54→23:26)
[2018-09-21] MEDS: INSULIN LISPRO 100 UNIT/ML 3 ML VIAL SUBCUT SCH ×4 (05:54→23:26)
--- NOTE | 2018-09-21 09:23 | PDOC PROGRESS REPORT ---
Subjective Progress Note for:: 09/21/18 Subjective:: feels ok, min incisional pain Reason For Visit: INTUSSUSCEPTION, S/P GASTRUC BYPASS Physical Exam Vital Signs: Temp Pulse Resp BP Pulse Ox 98.6 F 92 18 127/68 H 96 09/21/18 03:27 09/21/18 08:00 09/21/18 08:00 09/21/18 08:00 09/21/18 08:00 Intake & Output 09/20/18 09/21/18 09/22/18 06:59 06:59 06:59 Intake Total 2350 1922 Output Total 515 473 Balance 1835 1449 Weight 77.1 kg 84.3 kg General appearance: PRESENT: no acute distress Eye exam: PRESENT: EOMI Mouth exam: PRESENT: moist Teeth exam: PRESENT: poor dentation Neck exam: PRESENT: full ROM Respiratory exam: PRESENT: clear to auscultation kelin Cardiovascular exam: PRESENT: RRR Pulses: PRESENT: normal femoral pulses, normal dorsalis pedis pul GI/Abdominal exam: PRESENT: hypoactive bowel sounds, soft Rectal exam: PRESENT: deferred Extremities exam: PRESENT: full ROM Musculoskeletal exam: PRESENT: full ROM Neurological exam: PRESENT: alert, awake, oriented to person, oriented to place Psychiatric exam: PRESENT: appropriate affect Skin exam: PRESENT: dry Results Laboratory Results: 09/21/18 04:45 09/21/18 04:45 09/20/18 09/20/18 09/21/18 08:59 08:59 04:45 WBC 5.6 RBC 4.01 Hgb 11.5 L Hct 32.9 L MCV 82 MCH 28.6 MCHC 34.8 RDW 15.6 H Plt Count 149 L Seg Neutrophils % 85.1 H Lymphocytes % 9.3 L Monocytes % 4.1 Eosinophils % 1.3 Basophils % 0.2 Absolute Neutrophils 4.8 Absolute Lymphocytes 0.5 Absolute Monocytes 0.2 Absolute Eosinophils 0.1 Absolute Basophils 0.0 Sodium 140.9 Potassium 3.9 Chloride 105 Carbon Dioxide 25 Anion Gap 11 BUN 11 Creatinine 0.83 Est GFR ( Amer) > 60 Est GFR (Non-Af Amer) > 60 Glucose 185 H Lactic Acid 1.4 Calcium 9.3 09/21/18 04:45 WBC RBC Hgb Hct MCV MCH MCHC RDW Plt Count Seg Neutrophils % Lymphocytes % Monocytes % Eosinophils % Basophils % Absolute Neutrophils Absolute Lymphocytes Absolute Monocytes Absolute Eosinophils Absolute Basophils Sodium 140.3 Potassium 3.5 L Chloride 105 Carbon Dioxide 28 Anion Gap 7 BUN 11 Creatinine 0.82 Est GFR ( Amer) > 60 Est GFR (Non-Af Amer) > 60 Glucose 98 Lactic Acid Calcium 9.1 Impressions: Abdomen/Pelvis CT 09/19/18 20:40 IMPRESSION: Probable small bowel ileus, as above. Trace of free fluid in the pelvis. Post surgical changes. Note is made of an area of entero-enteral intussusception in the left upper quadrant near the anastomotic suture site. However there is no transition point at this site. Fatty infiltrative change to the liver. TECHNICAL DOCUMENTATION: Quality ID # 436: Final reports with documentation of one or more dose reduction techniques (e.g., Automated exposure control, adjustment of the mA and/or kV according to patient size, use of iterative reconstruction technique) copyright 2011 [employer]- All Rights Reserved Assessment & Plan - Diagnosis (1) Status post gastric bypass for obesity Is this a current diagnosis for this admission?: Yes (2) Intussusception intestine Is this a current diagnosis for this admission?: Yes - Plan Summary Plan Summary: s/p exploratory laparotomy for sbo and intussesception now doing better abd min tender no passage of flatus will cont npo increase activity awaiting bowel function return.
[2018-09-21] MEDS: FAMOTIDINE INJ/PF 20 MG/2 ML SDV IV SCH ×2 (09:24→21:58)
[2018-09-21] MEDS: ENOXAPARIN SODIUM INJ 40 MG/0.4 ML DISP.SYRIN SUBCUT SCH (09:24)
[2018-09-21] MEDS: DEXTROSE 5%-LACTATED RINGERS 1,000 ML IV PRN ×2 (11:50→23:27)
[2018-09-22] MEDS: METOPROLOL TARTRATE PF/INJ 5 MG/5 ML SDV IV SCH ×6 (02:35→21:06)
[2018-09-22] MEDS: INSULIN LISPRO 100 UNIT/ML 3 ML VIAL SUBCUT SCH ×3 (05:17→17:53)
[2018-09-22] MEDS: HYDRALAZINE HCL INJ/PF 20 MG/1 ML SDV IV SCH ×3 (06:26→17:52)
[2018-09-22] MEDS: CEFAZOLIN 1 GM/D5W RTU 1 GM/50 ML RTUPB IV SCH ×3 (06:26→17:51)
[2018-09-22 06:54] LABS: ABSOLUTE EOSINOPHILS # (AUTO) 0.1 10^3/uL (0.0-0.6); ABSOLUTE LYMPHOCYTES (AUTO) 0.5 10^3/uL (0.5-4.7); ABSOLUTE MONOCYTES (AUTO) 0.3 10^3/uL (0.1-1.4); ABSOLUTE NEUT (AUTO) 2.7 10^3/uL (1.7-8.2); BASOPHILS % (AUTO) 0.3 % (0-2); EOSINOPHILS % (AUTO) 1.4 % (0-6); HEMATOCRIT 30.7 % (36.0-47.0); HEMOGLOBIN 10.7 g/dL (12.0-15.5); LYMPHOCYTES % (AUTO) 14.4 % (13-45); MEAN CORPUSCULAR HEMOGLOBIN 28.9 pg (27.0-33.4); MEAN CORPUSCULAR HGB CONC 34.9 g/dL (32.0-36.0); MEAN CORPUSCULAR VOLUME 83 fl (80-97); MONOCYTES % (AUTO) 7.4 % (3-13); PLATELET COUNT 135 10^3/uL (150-450); RED BLOOD COUNT 3.71 10^6/uL (3.72-5.28); RED CELL DISTRIBUTION WIDTH 15.4 % (11.5-14.0); SEGMENTED NEUTROPHILS % (AUTO) 76.5 % (42-78); TOTAL CELLS COUNTED % (AUTO) 100 %; WHITE BLOOD COUNT 3.6 10^3/uL (4.0-10.5)
[2018-09-22 07:23] LABS: ANION GAP 7 (5-19); BLOOD UREA NITROGEN 7 mg/dL (7-20); CALCIUM 8.9 mg/dL (8.4-10.2); CARBON DIOXIDE 30 mmol/L (22-30); CHLORIDE 103 mmol/L (98-107); GLUCOSE 90 mg/dL (75-110); POTASSIUM 3.2 mmol/L (3.6-5.0); SODIUM 140.3 mmol/L (137-145)
[2018-09-22] MEDS: FAMOTIDINE INJ/PF 20 MG/2 ML SDV IV SCH ×2 (10:03→21:06)
[2018-09-22] MEDS: KETOROLAC TROMETHAMINE INJ/PF 30 MG/1 ML SDV IV PRN ×2 (10:04→21:06)
[2018-09-22] MEDS ORDERED: BISACODYL 10 MG SUPP.RECT PR ONE (11:25)
--- NOTE | 2018-09-22 11:25 | PDOC PROGRESS REPORT ---
Subjective Progress Note for:: 09/22/18 Reason For Visit: INTUSSUSCEPTION, S/P GASTRUC BYPASS Physical Exam Vital Signs: Temp Pulse Resp BP Pulse Ox 98.0 F 91 16 147/81 H 98 09/22/18 08:15 09/22/18 08:15 09/22/18 08:15 09/22/18 08:15 09/22/18 08:15 Intake & Output 09/21/18 09/22/18 09/23/18 06:59 06:59 06:59 Intake Total 1922 3391 50 Output Total 473 1020 Balance 1449 2371 50 Weight 84.3 kg 86 kg General appearance: PRESENT: no acute distress Head exam: PRESENT: normocephalic Eye exam: PRESENT: EOMI Mouth exam: PRESENT: moist Throat exam: PRESENT: other Neck exam: PRESENT: full ROM Respiratory exam: PRESENT: clear to auscultation kelin Cardiovascular exam: PRESENT: RRR Pulses: PRESENT: normal femoral pulses, normal dorsalis pedis pul GI/Abdominal exam: PRESENT: diminished bowel sounds, firm Rectal exam: PRESENT: deferred Extremities exam: PRESENT: full ROM Musculoskeletal exam: PRESENT: full ROM Neurological exam: PRESENT: alert, awake, oriented to person, oriented to place Psychiatric exam: PRESENT: appropriate affect Skin exam: PRESENT: dry Results Laboratory Results: 09/22/18 05:15 09/22/18 05:15 09/22/18 09/22/18 05:15 05:15 WBC 3.6 L RBC 3.71 L Hgb 10.7 L Hct 30.7 L MCV 83 MCH 28.9 MCHC 34.9 RDW 15.4 H Plt Count 135 L Seg Neutrophils % 76.5 Lymphocytes % 14.4 Monocytes % 7.4 Eosinophils % 1.4 Basophils % 0.3 Absolute Neutrophils 2.7 Absolute Lymphocytes 0.5 Absolute Monocytes 0.3 Absolute Eosinophils 0.1 Absolute Basophils 0.0 Sodium 140.3 Potassium 3.2 L Chloride 103 Carbon Dioxide 30 Anion Gap 7 BUN 7 Creatinine 0.76 Est GFR ( Amer) > 60 Est GFR (Non-Af Amer) > 60 Glucose 90 Calcium 8.9 09/19/18 21:55 Clean Catch Midstream Urine Culture - Final Mixed Urogenital Thu Impressions: Abdomen/Pelvis CT 09/19/18 20:40 IMPRESSION: Probable small bowel ileus, as above. Trace of free fluid in the pelvis. Post surgical changes. Note is made of an area of entero-enteral intussusception in the left upper quadrant near the anastomotic suture site. However there is no transition point at this site. Fatty infiltrative change to the liver. TECHNICAL DOCUMENTATION: Quality ID # 436: Final reports with documentation of one or more dose reduction techniques (e.g., Automated exposure control, adjustment of the mA and/or kV according to patient size, use of iterative reconstruction technique) copyright 2011 [employer]- All Rights Reserved Assessment & Plan - Diagnosis (1) Status post gastric bypass for obesity Is this a current diagnosis for this admission?: Yes (2) Intussusception intestine Is this a current diagnosis for this admission?: Yes - Plan Summary Plan Summary: s/p exploratory laparotomy for intussescption after gastric bypass up ambulating no passing of flatus or stool taking po clears labs reviewed cont current rx.
[2018-09-22] MEDS: ENOXAPARIN SODIUM INJ 40 MG/0.4 ML DISP.SYRIN SUBCUT SCH (11:52)
[2018-09-23] MEDS: INSULIN LISPRO 100 UNIT/ML 3 ML VIAL SUBCUT SCH ×5 (00:48→23:58)
[2018-09-23] MEDS: DEXTROSE 5%-LACTATED RINGERS 1,000 ML IV PRN (00:53)
[2018-09-23] MEDS: HYDRALAZINE HCL INJ/PF 20 MG/1 ML SDV IV SCH ×5 (00:53→23:48)
[2018-09-23] MEDS: CEFAZOLIN 1 GM/D5W RTU 1 GM/50 ML RTUPB IV SCH ×5 (00:54→23:48)
[2018-09-23] MEDS: METOPROLOL TARTRATE PF/INJ 5 MG/5 ML SDV IV SCH ×6 (02:19→21:29)
[2018-09-23] MEDS: KETOROLAC TROMETHAMINE INJ/PF 30 MG/1 ML SDV IV PRN ×2 (03:10→20:18)
[2018-09-23 06:14] LABS: ABSOLUTE EOSINOPHILS # (AUTO) 0.1 10^3/uL (0.0-0.6); ABSOLUTE LYMPHOCYTES (AUTO) 0.6 10^3/uL (0.5-4.7); ABSOLUTE MONOCYTES (AUTO) 0.3 10^3/uL (0.1-1.4); BASOPHILS % (AUTO) 0.2 % (0-2); EOSINOPHILS % (AUTO) 2.2 % (0-6); HEMATOCRIT 27.7 % (36.0-47.0); HEMOGLOBIN 9.7 g/dL (12.0-15.5); LYMPHOCYTES % (AUTO) 19.7 % (13-45); MEAN CORPUSCULAR HGB CONC 35.1 g/dL (32.0-36.0); MEAN CORPUSCULAR VOLUME 83 fl (80-97); MONOCYTES % (AUTO) 8.8 % (3-13); PLATELET COUNT 132 10^3/uL (150-450); RED BLOOD COUNT 3.35 10^6/uL (3.72-5.28); RED CELL DISTRIBUTION WIDTH 15.2 % (11.5-14.0); SEGMENTED NEUTROPHILS % (AUTO) 69.1 % (42-78); TOTAL CELLS COUNTED % (AUTO) 100 %; WHITE BLOOD COUNT 2.9 10^3/uL (4.0-10.5)
[2018-09-23] MEDS: MORPHINE SULFATE 10 MG/ML INJ IV PRN (06:22)
[2018-09-23] MEDS: ONDANSETRON HCL INJ/PF 4 MG/2 ML SDV IV PRN (06:26)
[2018-09-23 06:38] LABS: ANION GAP 6 (5-19); BLOOD UREA NITROGEN 4 mg/dL (7-20); CALCIUM 8.7 mg/dL (8.4-10.2); CARBON DIOXIDE 28 mmol/L (22-30); CHLORIDE 107 mmol/L (98-107); GLUCOSE 96 mg/dL (75-110); POTASSIUM 3.3 mmol/L (3.6-5.0); SODIUM 140.5 mmol/L (137-145)
--- NOTE | 2018-09-23 07:51 | PDOC PROGRESS REPORT ---
Subjective Progress Note for:: 09/23/18 Reason For Visit: INTUSSUSCEPTION, S/P GASTRUC BYPASS feels better passing flatus min incisional pain Physical Exam Vital Signs: Temp Pulse Resp BP Pulse Ox 98.4 F 74 21 H 160/90 H 97 09/23/18 03:17 09/23/18 03:17 09/23/18 03:17 09/23/18 03:17 09/23/18 03:17 Intake & Output 09/22/18 09/23/18 09/24/18 06:59 06:59 06:59 Intake Total 3391 2657 Output Total 1020 1036 Balance 2371 1621 Weight 86 kg 86.1 kg General appearance: PRESENT: no acute distress Head exam: PRESENT: normocephalic Eye exam: PRESENT: EOMI Mouth exam: PRESENT: moist Neck exam: PRESENT: full ROM Respiratory exam: PRESENT: clear to auscultation kelin Cardiovascular exam: PRESENT: RRR Pulses: PRESENT: normal radial pulses, normal femoral pulses GI/Abdominal exam: PRESENT: soft, other Rectal exam: PRESENT: deferred Extremities exam: PRESENT: full ROM Musculoskeletal exam: PRESENT: full ROM Neurological exam: PRESENT: alert, awake Psychiatric exam: PRESENT: appropriate affect Skin exam: PRESENT: dry Results Laboratory Results: 09/23/18 05:30 09/23/18 05:30 09/23/18 09/23/18 05:30 05:30 WBC 2.9 L RBC 3.35 L Hgb 9.7 L Hct 27.7 L MCV 83 MCH 29.0 MCHC 35.1 RDW 15.2 H Plt Count 132 L Seg Neutrophils % 69.1 Lymphocytes % 19.7 Monocytes % 8.8 Eosinophils % 2.2 Basophils % 0.2 Absolute Neutrophils 2.0 Absolute Lymphocytes 0.6 Absolute Monocytes 0.3 Absolute Eosinophils 0.1 Absolute Basophils 0.0 Sodium 140.5 Potassium 3.3 L Chloride 107 Carbon Dioxide 28 Anion Gap 6 BUN 4 L Creatinine 0.70 Est GFR ( Amer) > 60 Est GFR (Non-Af Amer) > 60 Glucose 96 Calcium 8.7 Impressions: Abdomen/Pelvis CT 09/19/18 20:40 IMPRESSION: Probable small bowel ileus, as above. Trace of free fluid in the pelvis. Post surgical changes. Note is made of an area of entero-enteral intussusception in the left upper quadrant near the anastomotic suture site. However there is no transition point at this site. Fatty infiltrative change to the liver. TECHNICAL DOCUMENTATION: Quality ID # 436: Final reports with documentation of one or more dose reduction techniques (e.g., Automated exposure control, adjustment of the mA and/or kV according to patient size, use of iterative reconstruction technique) copyright 2011 [employer]- All Rights Reserved Assessment & Plan - Diagnosis (1) Status post gastric bypass for obesity Is this a current diagnosis for this admission?: Yes (2) Intussusception intestine Is this a current diagnosis for this admission?: Yes - Plan Summary Plan Summary: doing better now with returning bowel function will advance to full lquids hep lock iv prob home in am
[2018-09-23] MEDS: ENOXAPARIN SODIUM INJ 40 MG/0.4 ML DISP.SYRIN SUBCUT SCH (08:59)
[2018-09-23] MEDS: FAMOTIDINE INJ/PF 20 MG/2 ML SDV IV SCH ×2 (09:03→21:29)
[2018-09-23] MEDS ORDERED: LACTULOSE SYRUP 20 GM/30 ML UDCUP PO ONE (17:00)
[2018-09-24] MEDS: METOPROLOL TARTRATE PF/INJ 5 MG/5 ML SDV IV SCH ×3 (01:50→10:51)
[2018-09-24] MEDS: HYDRALAZINE HCL INJ/PF 20 MG/1 ML SDV IV SCH (05:26)
[2018-09-24] MEDS: CEFAZOLIN 1 GM/D5W RTU 1 GM/50 ML RTUPB IV SCH (05:27)
[2018-09-24] MEDS: INSULIN LISPRO 100 UNIT/ML 3 ML VIAL SUBCUT SCH (05:40)
[2018-09-24 06:02] LABS: ABSOLUTE EOSINOPHILS # (AUTO) 0.1 10^3/uL (0.0-0.6); ABSOLUTE LYMPHOCYTES (AUTO) 0.5 10^3/uL (0.5-4.7); ABSOLUTE MONOCYTES (AUTO) 0.3 10^3/uL (0.1-1.4); BASOPHILS % (AUTO) 0.4 % (0-2); EOSINOPHILS % (AUTO) 2.4 % (0-6); HEMATOCRIT 28.2 % (36.0-47.0); HEMOGLOBIN 9.9 g/dL (12.0-15.5); LYMPHOCYTES % (AUTO) 18.9 % (13-45); MEAN CORPUSCULAR HEMOGLOBIN 29.2 pg (27.0-33.4); MEAN CORPUSCULAR HGB CONC 35.2 g/dL (32.0-36.0); MEAN CORPUSCULAR VOLUME 83 fl (80-97); MONOCYTES % (AUTO) 9.8 % (3-13); PLATELET COUNT 147 10^3/uL (150-450); RED CELL DISTRIBUTION WIDTH 15.5 % (11.5-14.0); SEGMENTED NEUTROPHILS % (AUTO) 68.5 % (42-78); TOTAL CELLS COUNTED % (AUTO) 100 %; WHITE BLOOD COUNT 2.9 10^3/uL (4.0-10.5)
[2018-09-24 06:22] LABS: ANION GAP 6 (5-19); BLOOD UREA NITROGEN 3 mg/dL (7-20); CALCIUM 8.5 mg/dL (8.4-10.2); CARBON DIOXIDE 29 mmol/L (22-30); CHLORIDE 105 mmol/L (98-107); GLUCOSE 81 mg/dL (75-110); POTASSIUM 3.1 mmol/L (3.6-5.0); SODIUM 140.4 mmol/L (137-145)
--- NOTE | 2018-09-24 10:20 | PDOC PROGRESS REPORT ---
Subjective Progress Note for:: 09/24/18 Reason For Visit: INTUSSUSCEPTION, S/P GASTRUC BYPASS Physical Exam Vital Signs: Temp Pulse Resp BP Pulse Ox 98.9 F 77 15 153/83 H 99 09/24/18 07:52 09/24/18 07:52 09/24/18 07:52 09/24/18 07:52 09/24/18 07:52 Intake & Output 09/23/18 09/24/18 09/25/18 06:59 06:59 06:59 Intake Total 2657 1623 Output Total 1036 1660 Balance 1621 -37 Weight 86.1 kg 89.2 kg General appearance: PRESENT: no acute distress Eye exam: PRESENT: EOMI Mouth exam: PRESENT: moist Neck exam: PRESENT: full ROM Respiratory exam: PRESENT: clear to auscultation kelin Cardiovascular exam: PRESENT: RRR GI/Abdominal exam: PRESENT: soft, other - wound clean dry Rectal exam: PRESENT: deferred Extremities exam: PRESENT: full ROM Musculoskeletal exam: PRESENT: full ROM Neurological exam: PRESENT: alert, awake, oriented to person, oriented to place Psychiatric exam: PRESENT: anxious Skin exam: PRESENT: dry Results Laboratory Results: 09/24/18 05:10 09/24/18 05:10 09/24/18 09/24/18 05:10 05:10 WBC 2.9 L RBC 3.40 L Hgb 9.9 L Hct 28.2 L MCV 83 MCH 29.2 MCHC 35.2 RDW 15.5 H Plt Count 147 L Seg Neutrophils % 68.5 Lymphocytes % 18.9 Monocytes % 9.8 Eosinophils % 2.4 Basophils % 0.4 Absolute Neutrophils 2.0 Absolute Lymphocytes 0.5 Absolute Monocytes 0.3 Absolute Eosinophils 0.1 Absolute Basophils 0.0 Sodium 140.4 Potassium 3.1 L Chloride 105 Carbon Dioxide 29 Anion Gap 6 BUN 3 L Creatinine 0.75 Est GFR ( Amer) > 60 Est GFR (Non-Af Amer) > 60 Glucose 81 Calcium 8.5 Impressions: Abdomen/Pelvis CT 09/19/18 20:40 IMPRESSION: Probable small bowel ileus, as above. Trace of free fluid in the pelvis. Post surgical changes. Note is made of an area of entero-enteral intussusception in the left upper quadrant near the anastomotic suture site. However there is no transition point at this site. Fatty infiltrative change to the liver. TECHNICAL DOCUMENTATION: Quality ID # 436: Final reports with documentation of one or more dose reduction techniques (e.g., Automated exposure control, adjustment of the mA and/or kV according to patient size, use of iterative reconstruction technique) copyright 2011 [employer]- All Rights Reserved Assessment & Plan - Diagnosis (1) Status post gastric bypass for obesity Is this a current diagnosis for this admission?: Yes (2) Intussusception intestine Is this a current diagnosis for this admission?: Yes - Plan Summary Plan Summary: doing well had bm this moring cesar reg diet will dc home today.
[2018-09-24 10:44] VITALS: BP 136/80
[2018-09-24] MEDS: ENOXAPARIN SODIUM INJ 40 MG/0.4 ML DISP.SYRIN SUBCUT SCH (10:51)
[2018-09-24] MEDS: FAMOTIDINE INJ/PF 20 MG/2 ML SDV IV SCH (10:51)
--- NOTE | 2018-09-24 10:59 | DISCHARGE SUMMARY E ---
Discharge Summary NAME: FREDDIE OCHOA : 1970 AGE: 47Y ADMITTED: 09/19/2018 DISCHARGED: 09/24/2018 ADMISSION DIAGNOSIS: Intestinal intussusception status post gastric bypass procedure. POSTOPERATIVE DIAGNOSIS: Intestinal intussusception status post gastric bypass procedure. OPERATIVE PROCEDURE: Exploratory laparotomy with gastric bypass revision, lysis of adhesions. REASON FOR HOSPITALIZATION AND HOSPITAL COURSE: This is a 47-year-old female who presented to the emergency room on the 19 of September with complaints of increasing generalized abdominal pain starting at noon. She was having severe writhing abdominal pain on admission. A CT scan was obtained, which shows intussusception of her jejunal anastomosis. She was therefore taken to the operating room for exploratory laparotomy and revision of the intestinal intussusception and lysis of adhesions. Postoperatively, she had a routine benign postop course. The NG tube was removed on postop day one and she was started on sips of clear liquids. This was slowly advanced over the course of the next 3 days to full liquids, and then by the time of discharge, a regular diet. During her postoperative course, she had a slow resolution of bowel function. She started having bowel movements on the day of discharge. Her pain was well controlled. Her incision, on the day of discharge, is clean and dry. She is tolerating a regular diet and she is having normal bowel movements. She is ready and wants to be discharged home today. DISCHARGE MEDICATIONS: Include: 1. Colace 100 mg p.o. b.i.d. for stool softener. 2. Tramadol 50 mg 1 p.o. q. 6 p.r.n. incisional pain. DISCHARGE INSTRUCTIONS: She will be given a followup appointment for staple removal in 7-10 days after discharge. She is instructed not to lift anything greater than 5-10 pounds for the next 4-6 weeks and increase oral intake of clear fluids and ambulate as much as possible and do not become too sedentary. FINAL DIAGNOSIS: Intestinal intussusception status post gastric bypass. DICTATING PHYSICIAN: JOSE LUIS FABIAN M.D. [id number] PHY#: [id number] ID: [id number] JOB#: [id number] ACCT: [id number] cc:JOSE LUIS FABIAN M.D. >
== END 2018-09-24 11:01 | disposition home or self-care (01) | DRG 336 ==
LOC: ER 20:08 → EH 23:47 → 2N 09-20 04:08 → 3N 09-20 12:24
PROVIDERS: ADMIT Surgery; ATTEND Surgery
PROC: 0DQV0ZZ Repair Mesentery, Open Approach (ICD-10-PCS; 2018-09-20)
PROC: 0DN80ZZ Release Small Intestine, Open Approach (ICD-10-PCS; principal; 2018-09-20 01:00)
DX: K91.30 Postprocedural intestinal obstruction, unspecified as to partial versus complete (principal); K95.89 Other complications of other bariatric procedure; E11.9 Type 2 diabetes mellitus without complications; F32.9 Major depressive disorder, single episode, unspecified; D64.9 Anemia, unspecified; F17.210 Nicotine dependence, cigarettes, uncomplicated; I16.0 Hypertensive urgency; I10 Essential (primary) hypertension; R00.0 Tachycardia, unspecified; M54.9 Dorsalgia, unspecified; M54.2 Cervicalgia; G89.29 Other chronic pain; R20.2 Paresthesia of skin; Z98.84 Bariatric surgery status; Z86.73 Personal history of transient ischemic attack (TIA), and cerebral infarction without residual deficits; Z79.82 Long term (current) use of aspirin; Z91.14 Patient's other noncompliance with medication regimen; Z59.9 Problem related to housing and economic circumstances, unspecified
CPT/HCPCS: 36415; 74177; 790; 80048; 80053; 81001; 82962; 83605; 83690; 85025; 87040; 87086; 94799; 96374; 96375; 96376; 99285; J0131; J0330; J0360; J0690; J1100; J1650; J1885; J2250; J2270; J2405; J2550; J2704; J2710; J3010; J3490; J7121; S0028

== ENCOUNTER 2019-01-04 09:55 | Emergency (ER) | payer OTHER ==
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
[2019-01-04] MEDS ORDERED: LOSARTAN POTASSIUM 50 MG TABLET PO ONE (12:07)
[2019-01-04] MEDS ORDERED: HYDRALAZINE HCL 25 MG TABLET PO ONE (12:07)
[2019-01-04] MEDS ORDERED: HYDROCODONE/ACETAMINOPHEN 5-325 MG TABLET PO ONE (12:07)
[2019-01-04 13:19] VITALS: BP 169/80
== END 2019-01-04 13:30 | disposition home or self-care (01) ==
LOC: ER 09:55
DX: T25.222A Burn of second degree of left foot, initial encounter (principal); T25.221A Burn of second degree of right foot, initial encounter; X10.2XXA Contact with fats and cooking oils, initial encounter; Y93.G3 Activity, cooking and baking; Z90.49 Acquired absence of other specified parts of digestive tract; Y92.000 Kitchen of unspecified non-institutional (private) residence as the place of occurrence of the external cause; Z98.84 Bariatric surgery status

== ENCOUNTER 2019-03-25 17:20 | Emergency (ER) | payer OTHER ==
--- NOTE | 2019-03-25 18:24 | ER Document Report ---
ED Medical Screen (RME) - General Chief Complaint: Abscess Stated Complaint: POSSIBLE ABSCESS Time Seen by Provider: 03/25/19 18:22 Primary Care Provider: MAU ASHRAF MD [Primary Care Provider] - Follow up as needed Mode of Arrival: Ambulatory Information source: Patient Notes: 48-year-old female presented to ED for complaint of dental abscess on the right upper gums. She states x2 to 3 days. She states she has had one in the past and was treated on antibiotics. She said she has had a couple in the last couple months. She states she is afraid to dentist so she does not go to the dentist. She is on amlodipine, folic acid, gabapentin, meloxicam, and Lorazepam. I have greeted and performed a rapid initial assessment of this patient. A comprehensive ED assessment and evaluation of the patient, analysis of test results and completion of medical decision making process will be conducted by an additional ED providers. TRAVEL OUTSIDE OF THE [place] IN LAST 30 DAYS: No - Related Data Allergies/Adverse Reactions: No Known Allergies Allergy (Verified 09/20/18 05:41) Past Medical History - Past Medical History Cardiac Medical History: Reports: Hx Hypertension - She was admitted to the hospital in 2018 for hypertensive urgency. Endocrine Medical History: Reports: Hx Diabetes Mellitus Type 2 Renal/ Medical History: Denies: Hx Peritoneal Dialysis Psychiatric Medical History: Reports: Hx Depression Past Surgical History: Reports: Hx Abdominal Surgery, Hx Section, Hx Cholecystectomy, Hx Gastric Bypass Surgery, Hx Hysterectomy Physical Exam - Vital signs Vitals: Temp Pulse Resp BP Pulse Ox 99.1 F 98 16 159/123 H 98 03/25/19 17:22 03/25/19 17:22 03/25/19 17:22 03/25/19 17:22 03/25/19 17:22 Course - Vital Signs Vital signs: Temp Pulse Resp BP Pulse Ox 99.1 F 98 16 159/123 H 98 03/25/19 17:22 03/25/19 17:22 03/25/19 17:22 03/25/19 17:22 03/25/19 17:22 Doctor's Discharge - Discharge Referrals: MAU ASHRAF MD [Primary Care Provider] - Follow up as needed
[2019-03-25 19:39] LABS: ABSOLUTE EOSINOPHILS # (AUTO) 0.1 10^3/uL (0.0-0.6); ABSOLUTE LYMPHOCYTES (AUTO) 1.1 10^3/uL (0.5-4.7); ABSOLUTE MONOCYTES (AUTO) 0.3 10^3/uL (0.1-1.4); ABSOLUTE NEUT (AUTO) 3.6 10^3/uL (1.7-8.2); BASOPHILS % (AUTO) 0.2 % (0-2); EOSINOPHILS % (AUTO) 1.4 % (0-6); HEMATOCRIT 37.2 % (36.0-47.0); HEMOGLOBIN 12.7 g/dL (12.0-15.5); LYMPHOCYTES % (AUTO) 21.1 % (13-45); MEAN CORPUSCULAR HEMOGLOBIN 27.1 pg (27.0-33.4); MEAN CORPUSCULAR HGB CONC 34.1 g/dL (32.0-36.0); MEAN CORPUSCULAR VOLUME 80 fl (80-97); MONOCYTES % (AUTO) 6.2 % (3-13); PLATELET COUNT 191 10^3/uL (150-450); RED BLOOD COUNT 4.67 10^6/uL (3.72-5.28); RED CELL DISTRIBUTION WIDTH 18.1 % (11.5-14.0); SEGMENTED NEUTROPHILS % (AUTO) 71.1 % (42-78); TOTAL CELLS COUNTED % (AUTO) 100 %; WHITE BLOOD COUNT 5.1 10^3/uL (4.0-10.5)
[2019-03-25 19:55] LABS: ALBUMIN 4.6 g/dL (3.5-5.0); ALKALINE PHOSPHATASE 98 U/L (38-126); ANION GAP 8 (5-19); ASPARTATE AMINO TRANSFERASE 32 U/L (14-36); BILIRUBIN,DIRECT 0.1 mg/dL (0.0-0.4); BILIRUBIN,TOTAL 0.7 mg/dL (0.2-1.3); BLOOD UREA NITROGEN 10 mg/dL (7-20); CALCIUM 9.5 mg/dL (8.4-10.2); CARBON DIOXIDE 29 mmol/L (22-30); CHLORIDE 104 mmol/L (98-107); GLUCOSE 94 mg/dL (75-110); POTASSIUM 3.6 mmol/L (3.6-5.0)
[2019-03-25] MEDS ORDERED: HYDROCODONE/ACETAMINOPHEN 5-325 MG TABLET PO ONE (22:14)
[2019-03-25] MEDS ORDERED: BENZOCAINE 20% AEROSOL SPRAY 60 GM TP ONE (23:09)
[2019-03-25] MEDS ORDERED: PENICILLIN V POTASSIUM 500 MG TABLET PO ONE (23:11)
[2019-03-25] MEDS ORDERED: METRONIDAZOLE 500 MG TABLET PO ONE (23:11)
[2019-03-25] MEDS ORDERED: BENZOCAINE 20% AEROSOL SPRAY 60 GM ONE (23:17)
--- NOTE | 2019-03-26 | ER Document Report ---
Entered by GAURAV HAAS SCRIBE 03/25/19 2213 Acting as scribe for:HARRY CARPIO IV, MD ED Oral Problem - General Chief Complaint: Toothache Stated Complaint: POSSIBLE ABSCESS Time Seen by Provider: 03/25/19 18:22 Primary Care Provider: MAU ASHRAF MD [ACTIVE STAFF] - Follow up as needed Mode of Arrival: Ambulatory Information source: Patient Notes: 48-year-old female who presents to the emergency department today for a dental abscess. Patient has had multiple dental abscesses in the past and she states she is "scared to see a dentist because she is scared of needles". Patient states the pain radiates up into the right side of her face. TRAVEL OUTSIDE OF THE [place] IN LAST 30 DAYS: No - Related Data Allergies/Adverse Reactions: No Known Allergies Allergy (Verified 09/20/18 05:41) Home Medications: Gabapentin, Lorazepam, Meloxicam, Amlodipine Past Medical History - General Information source: Patient - Social History Smoking Status: Unknown if Ever Smoked Frequency of alcohol use: None Drug Abuse: None Family History: Reviewed & Not Pertinent Patient has suicidal ideation: No Patient has homicidal ideation: No - Past Medical History Cardiac Medical History: Reports: Hx Hypertension - She was admitted to the hospital in 2018 for hypertensive urgency Endocrine Medical History: Reports: Hx Diabetes Mellitus Type 2 Psychiatric Medical History: Reports: Hx Depression Past Surgical History: Reports: Hx Abdominal Surgery, Hx Section, Hx Cholecystectomy, Hx Gastric Bypass Surgery, Hx Hysterectomy Review of Systems - Review of Systems Constitutional: No symptoms reported EENT: See HPI, Mouth pain, Mouth swelling, Dental problem Cardiovascular: No symptoms reported Respiratory: No symptoms reported Gastrointestinal: No symptoms reported Genitourinary: No symptoms reported Female Genitourinary: No symptoms reported Musculoskeletal: No symptoms reported Skin: No symptoms reported Hematologic/Lymphatic: No symptoms reported Neurological/Psychological: No symptoms reported -: Yes All other systems reviewed and negative Physical Exam - Vital signs Vitals: Temp Pulse Resp BP Pulse Ox 99.1 F 98 16 159/123 H 98 03/25/19 17:22 03/25/19 17:22 03/25/19 17:22 03/25/19 17:22 03/25/19 17:22 - Notes Notes: Physical Exam: General: Alert, appears well. HEENT: Normocephalic. Atraumatic. PERRL. Extraocular movements intact. Oropharynx clear. Pointing abscess with fractured tooth #7 spontaneously draining purulent discharge. Neck: Supple. Non-tender. Respiratory: No respiratory distress. Clear and equal breath sounds bilaterally. Cardiovascular: Regular rate and rhythm. Abdominal: Normal Inspection. Non-tender. No distension. Normal Bowel Sounds. Back: No gross abnormalities. Extremities: Moves all four extremities. Upper extremities: Normal inspection. Normal ROM. Lower extremities: Normal inspection. No edema. Normal ROM. Neurological: Normal cognition. AAOx4. Normal speech. Psychological: Normal affect. Normal Mood. Skin: Warm. Dry. Normal color. Course - Re-evaluation Re-evalutation: 03/26/19 00:28 PAIN DECREASED AT TIME OF DISCHARGE. PT STATES SHE FEELS BETTER AT TIME OF DI SCHARGE - Vital Signs Vital signs: Temp Pulse Resp BP Pulse Ox 99.1 F 98 16 159/123 H 98 03/25/19 17:22 03/25/19 17:22 03/25/19 17:22 03/25/19 17:22 03/25/19 17:22 03/26/19 00:27 VITAL SIGNS REVIEWED BY THIS MD. PT REMINDED AT TIME OF DISCHARGE TO CONTINUE TAKING HER BLOOD PRESSURE MEDICATION PRESCRIBED. - Laboratory Result Diagrams: 03/25/19 19:05 03/25/19 19:05 Laboratory results interpreted by me: 03/25/19 19:05 RDW 18.1 H 03/26/19 00:28 LAB RESULTS REVIEWED BY THIS MD Discharge - Discharge Clinical Impression: Dental abscess Condition: Good Disposition: HOME, SELF-CARE Instructions: Abscess ([facility]), [facility], Penicillin V K ([facility]), Toothache ([facility]) Additional Instructions: FOLLOW UP WITH YOUR DENTIST IN 10 DAYS. HOME CARE INSTRUCTIONS & INFORMATION: Thank you for choosing us for your medical needs. We hope you're satisfied with the care you received. After you leave, you must properly care for your problem and, at the same time, observe its progress. Any condition can change. Some illnesses can change rapidly over hours or days. If your condition worsens, return to the Emergency Department or see your physician promptly. ABOUT YOUR X-RAYS AND EKG'S: If you had an EKG or X-rays taken, they have been read by the Emergency Physician. The X-rays and EKG's will also be read by a Radiologist or Brand Planner within 24 hours. If discrepancies are noted, you will be notified by telephone. Please be certain the ED has a correct telephone number & address where you can be reached. Also, realize that some fractures or abnormalities do not show up on initial X-rays. If your symptoms continue, see your physician. ABOUT YOUR LABORATORY TEST: If you had laboratory tests, the results have been reviewed by the Emergency Physician. Some test results (for example cultures) may not be available for several days. You will be contacted if any test result shows you need additional treatment. Please be certain the ED has a correct telephone number and address where you can be reached. ABOUT YOUR MEDICATIONS: You will receive instructions on how to take your medicine on the prescription label you receive. Additional information may be provided by the Pharmacy. If you have questions afterwards, call the ED for clarification or further instructions. Some prescribed medications may cause drowsiness. Do not perform tasks such as driving a car or operating machinery without consulting your Pharmacist. If you feel you need a refill of pain medication, your condition will need re-evaluation. Please do not call for a refill of any medication. ABOUT YOUR SIGNATURE: Signature of this document acknowledges to followin. Understanding that you received emergency treatment and that you may be released before al medical problems are known or treated. Please be certain the ED has a correct phone number & address where you can be reached. 2. Acknowledgement that you will arrange for follow-up care as recommended. 3. Authorization for the Emergency Physician to provide information to your follow-up Physician in order to maximize your care. AT ANY TIME, IF YOUR SYMPTOMS CHANGE SIGNIFICANTLY OR WORSEN OR YOU DEVELOP NEW SYMPTOMS, RETURN TO THE EMERGENCY DEPARTMENT IMMEDIATELY FOR RE-EVALUATION. OUR GOAL IS TO PROVIDE EXCELLENT MEDICAL CARE! WE HOPE THAT WE HAVE MET YOUR EXPECTATIONS DURING YOUR EMERGENCY DEPARTMENT VISIT AND THAT YOU FEEL YOU HAVE RECEIVED EXCELLENT CARE! Prescriptions: Metronidazole [Flagyl 500 mg Tablet] 500 mg PO TID #30 tablet Hydrocodone/Acetaminophen [[place] 5-325 mg Tabs (6 Tab/ER Disp)] 1 tab PO 6XD #1 dspk Penicillin V Potassium [Penicillin Vk 500 mg Tablet] 500 mg PO QID #40 tablet Forms: Return to Work Referrals: OJEBUOBOH,IBIKUNLE, MD [ACTIVE STAFF] - Follow up as needed I personally performed the services described in the documentation, reviewed and edited the documentation which was dictated to the scribe in my presence, and it accurately records my words and actions.
[2019-03-26] MEDS ORDERED: HYDROCODONE/ACETAMINOPHEN 5-325 MG (6 TAB/ER DISP) PO PRN (00:10)
[2019-03-26 00:29] VITALS: BP 197/101
== END 2019-03-26 00:29 | disposition home or self-care (01) ==
LOC: ER 17:20
DX: K04.7 Periapical abscess without sinus (principal); I10 Essential (primary) hypertension; E11.9 Type 2 diabetes mellitus without complications; Z79.899 Other long term (current) drug therapy; Z79.1 Long term (current) use of non-steroidal anti-inflammatories (NSAID)
CPT/HCPCS: 36415; 85025; 80053; J3490; 99283

== ENCOUNTER → 2019-08-30 | Outpatient (CLI) | payer OTHER ==
--- NOTE | 2019-08-30 16:16 | RADIOLOGY REPORT (SQ) ---
EXAM DESCRIPTION: HAND RIGHT 3 VIEWS IMAGES COMPLETED DATE/TIME: 08/30/2019 3:55 pm REASON FOR STUDY: ANKYLOSIS IN RIGHT HAND, UNILATERAL PRIMARY OSTEOARTHRITIS IN RIGHT KNEE COMPARISON: None. EXAM PARAMETERS: NUMBER OF VIEWS: Three views. TECHNIQUE: AP, lateral and oblique radiographic images acquired of the right hand. LIMITATIONS: None. FINDINGS: MINERALIZATION: Normal. BONES: No acute fracture or dislocation. JOINTS: No effusions. SOFT TISSUES: No soft tissue swelling or radiopaque foreign body. OTHER: No other finding. IMPRESSION: No acute osseous abnormality of the right hand. TECHNICAL DOCUMENTATION: JOB ID: [id number] 2010 [employer]- All Rights Reserved Reading location - IP/workstation name: [email or web address]
--- NOTE | 2019-08-30 16:41 | RADIOLOGY REPORT (SQ) ---
EXAM DESCRIPTION: KNEE RIGHT 4 VIEWS IMAGES COMPLETED DATE/TIME: 08/30/2019 2:55 pm REASON FOR STUDY: B unilateral primary osteoarthritis right knee. COMPARISON: None. NUMBER OF VIEWS: Four views. TECHNIQUE: AP, lateral, and both oblique radiographic images acquired of the right knee. LIMITATIONS: None. FINDINGS: MINERALIZATION: Normal. BONES: No acute fracture or cortical disruption. Small marginal osteophytes and bony spurring of the tibial spines. JOINT: No joint effusion. No intra-articular loose body. SOFT TISSUES: No soft tissue swelling. No radio-opaque foreign body. OTHER: No other significant finding. IMPRESSION: No acute fracture or dislocation of the right knee. Mild to moderate osteoarthritis. TECHNICAL DOCUMENTATION: JOB ID: [id number] 2010 [employer]- All Rights Reserved Reading location - IP/workstation name: [email or web address]
== END ==
LOC: OD 15:16
PROVIDERS: ATTEND Internal Medicine
DX: M24.641 Ankylosis, right hand (principal); M17.11 Unilateral primary osteoarthritis, right knee